=== PATIENT | male | born 1975 | race Caucasian/White ===

== ENCOUNTER 2024-04-19 01:36 | Emergency (ER) | payer BC, SELFPAY ==
--- NOTE | 2024-04-19 01:40 | ED.GENADULT ---
HPI - General Adult General Time Seen by Provider: 01:40 Date Seen: 04/19/24 Chief complaint: Back Injury/Pain Stated complaint: back pain radiating to right hand Time Seen by Provider: 04/19/24 01:39 Source: patient, RN notes reviewed and old records reviewed Mode of arrival: ambulatory Limitations: no limitations History of Present Illness HPI narrative: 48-year-old male who presents with back pain. Patient noted pain around the right scapula yesterday, gradually worsened during the course the day and now having some tingling into the ring finger and little finger of the right hand. No known injury but did do have a back work out 2 days ago. Took ibuprofen with minimal relief. No weakness. No chest pain or breathing difficulty, no other injuries. Related Data Home Medications ?Medication ?Instructions ?Recorded ?Confirmed No Known Home Medications 04/19/24 04/19/24 Allergies Allergy/AdvReac Type Severity Reaction Status Date / Time No Known Drug Allergies Allergy Verified 04/19/24 01:48 Exam Narrative: Exam Narrative: General: Well-developed and well-nourished, no acute distress Head: Atraumatic and normocephalic Eyes: Pupils are equal reactive, extraocular motions intact, conjunctiva clear ENT: External nose and ears are normal, posterior pharynx without erythema or exudate Neck: No midline cervical tenderness, full spontaneous range of motion the neck, trachea midline, no adenopathy Heart: Regular rate and rhythm no murmurs or thrills Lungs: Clear to auscultation bilaterally without wheezes or crackles Abdomen: Soft, nontender, nondistended with active bowel sounds Musculoskeletal: Tenderness along the right scapular border Neurologic: Awake, alert, and oriented x3, no gross focal neurologic deficits, cranial nerves intact as tested Psych: Mood and affect are appropriate Skin: No rashes Const: Vital Signs, click to edit/add: Vital Signs - 24 hr 04/19/24 01:46 Temperature 97.7 F Pulse Rate [Pulse Oximeter] 75 Respiratory Rate 16 Blood Pressure [Ri ght Upper Arm] 149/94 H Pulse Oximetry 95 Oxygen Delivery Me thod Room Air Course Course ED Course: Patient seen and examined, prior records reviewed. Patient presents today with right upper back pain and some numbness into the right hand. He notes that the numbness goes down the back of the arm and along the ulnar aspect of the right forearm into the ring finger and little finger. On exam, tenderness along the superior right scapular border, strength and sensation of the right arm intact. Patient will be started on prednisone burst and taper, muscle relaxant, and discussed symptom management for this. Follow-up with primary care next week to discuss physical therapy. Considered MRI of the cervical lumbar spine but no midline tenderness to percussion, no fevers to suggest spinal epidural abscess, and no weakness on exam Vital Signs Vital signs: Initial Vital Signs Temperature 97.7 F 04/19/24 01:46 Temperature Source Temporal Artery Scan 04/19/24 01:46 Pulse Rate 75 04/19/24 01:46 Respiratory Rate 16 04/19/24 01:46 Blood Pressure 149/94 H 04/19/24 01:46 Blood Pressure Mean 112 H 04/19/24 01:46 Blood Pressure Position Sitting 04/19/24 01:46 Pulse Oximetry 95 04/19/24 01:46 Oxygen Delivery Method Room Air 04/19/24 01:46 Vital Signs Temperature 97.7 F 04/19/24 01:46 Pulse Rate 75 04/19/24 01:46 Respiratory Rate 16 04/19/24 01:46 Blood Pressure 149/94 H 04/19/24 01:46 Pulse Oximetry 95 04/19/24 01:46 Oxygen Delivery Method Room Air 04/19/24 01:46 Temperature 97.7 F 04/19/24 01:46 Pulse Rate 75 04/19/24 01:46 Respiratory Rate 16 04/19/24 01:46 Blood Pressure 149/94 H 04/19/24 01:46 Pulse Oximetry 95 04/19/24 01:46 Oxygen Delivery Method Room Air 04/19/24 01:46 Discharge Plan Discharge Clinical Impression: Strain of thoracic back region, Radicular pain in right arm Patient Disposition: Home, Self-Care Condition: Stable Instructions: Paresthesia (ED), Thoracic Back Strain (ED) Additional Instructions: Take Tylenol and ibuprofen as needed for pain Take prednisone as prescribed Use [place] as needed for more severe pain induced Flexeril for muscle spasm Activity Level: Activity as Tolerated Discharge Diet: Regular Prescriptions: No Action No Known Home Medications Stand Alone Forms: MyHealth Info Instructions
[2024-04-19 01:46] VITALS: BP 149/94; PULSE 75; RESP 16; TEMP 36.5; O2SAT 95; BMI 31.2
--- OUTSIDE RECORDS SUMMARY | 2024-04-19 02:06 | XMS_ITS | Continuity of Care Document ---
Author Name [facility] Organization [facility] Care Team Providers Care Assistant Sales Director Name Role Phone [facility] Unavailable Unavailable Problems Combined list of problems from Department of [facility] and [facility] facilities. It does not include entries that were removed or entered in error. Problem Status Onset Date Problem Type Date of Resolution Comments Source pain in leg lower Inactive 02/08/2010 Condition [facility] Backache (ICD-9-CM 724.5) Active Condition [facility] Pain in joint involving shoulder region (ICD-9-CM 719.41) Active Condition [facility] Allergies, Adverse Reactions, Alerts Combined list of allergies from Department of [facility] and [facility] facilities. It does not include entries that were removed or entered in error. Substance Category Reaction Severity Reaction type Status Date Reported Comments Source CAT/FELINE PRODUCTS {Cla } Propensity to adverse reactions to substance Unknown Active 9 [facility] MOLD EXTRACTS (MOLD EXTRACTS) Propensity to adverse reactions to substance Unknown Active 9 Ambulatory Pharmacy Immunizations Combined list of available immunizations from the Department of [facility] and [facility] facilities. Immunization Series Date Given Administered By Site Reaction Lot Number CVX Code Drug Lei Seller Status Comments Source influenza, injectable, quadrivalent- pf 2020 [id number] 150 GlaxoSmithKli ne complet ed influenza , injectabl e, quadrival ent-pf 05/31/21 Given Ambulat ory Pharmac y Influenza, injectable, quadrivalent, preservative free 1 2020 [id number] 150 SmithKline (SKB) complet ed Influenza , injectabl e, quadrival ent, preservat brittany free [facility] COVID Vaccine Moderna 2020 [id number] complet ed COVID Vaccine Moderna 08/13/20 Given Ambulat ory Pharmac y SARS-COV-2 (COVID-19) vaccine, mRNA, spike protein, LNP, preservative free, 100 mcg or 50 mcg dose 2 2020 [id number] 207 Moderna Tachyus[employer] Inc. (MOD) complet ed SARS-COV- 2 (COVID-19 ) vaccine, mRNA, spike protein, LNP, preservat brittany free, 100 mcg or 50 mcg dose DoD COVID Vaccine Moderna 2020 [id number] 207 complet ed COVID Vaccine Moderna 07/17/20 Given Ambulat ory Pharmac y SARS-COV-2 (COVID-19) vaccine, mRNA, spike protein, LNP, preservative free, 100 mcg or 50 mcg dose 1 2020 [id number] 207 Moderna Tachyus, Inc. (MOD) complet ed SARS-COV- 2 (COVID-19 ) vaccine, mRNA, spike protein, LNP, preservat brittany free, 100 mcg or 50 mcg dose DoD influenza, injectable, quadrivalent 2019 [id number] 158 Seqirus complet ed influenza , injectabl e, quadrival ent 05/04/20 Given Ambulat ory Pharmac y influenza, injectable, quadrivalent, contains preservative 1 2019 [id number] 158 Seqirus (SEQ) complet ed influenza , injectabl e, quadrival ent, contains preservat brittany DoD influenza, injectable, quadrivalent- pf 2018 [id number] 150 Seqirus complet ed influenza , injectabl e, quadrival ent-pf 05/26/19 Given Ambulat ory Pharmac y Influenza, injectable, quadrivalent, preservative free 1 2018 [id number] 150 Seqirus (SEQ) complet ed Influenza , injectabl e, quadrival ent, preservat brittany free DoD influenza, injectable, quadrivalent- pf 2017 [id number] 150 Seqirus complet ed influenza , injectabl e, quadrival ent-pf 04/22/18 Given Ambulat ory Pharmac y Influenza, injectable, quadrivalent, preservative free 1 2017 [id number] 150 Seqirus (SEQ) comple t ed Influenza , injectabl e, quadrival ent, preservat brittany free DoD typhoid Vi capsular polysaccharid e vac 2017 [id number] 101 sanofi pasteur complet ed typhoid Vi capsular polysacch aride vac 02/26/18 Given Ambulat ory Pharmac y anthrax vaccine 2017 [id number] 24 Emergent Biosolutions complet ed anthrax vaccine 02/26/18 Given Ambulat ory Pharmac y anthrax vaccine 11 2017 [id number] 24 [employer] [place] ([facility]) complet ed anthrax vaccine DoD typhoid Vi capsular polysaccharid e vaccine 10 2017 [id number] 101 Sanofi Pasteur (PMC) complet ed typhoid Vi capsular polysacch aride vaccine DoD influenza, injectable, quadrivalent 2016 [id number] 158 GlaxoSmithKli ne complet ed influenza , injectabl e, quadrival ent 05/28/17 Given Ambulat ory Pharmac y influenza, injectable, quadrivalent, contains preservative 19 2016 [id number] 158 [facility] influenza , injectabl e, quadrival ent, contains preservat brittany DoD measles/mumps /rubella virus vaccine 2016 [id number] 03 Merck & Company Inc complet ed measles/m umps/rube lla virus vaccine 12/18/16 Given Ambulat ory Pharmac y anthrax vaccine 2016 [id number] 24 [employer] complet ed anthrax vaccine 12/18/16 Given Ambulat ory Pharmac y measles, mumps and rubella virus vaccine 2 2016 [id number] 03 Merck (MSD) complet ed measles, mumps and rubella virus vaccine DoD anthrax vaccine 10 2016 [id number] 24 [employer] [place] ([facility]) complet ed anthrax vaccine DoD tetanus-dipht h toxoids (Td) adult/adol 2016 [id number] 09 sanofi pasteur complet ed tetanus-d iphth toxoids (Td) adult/ado l 10/31/16 Given Ambulat ory Pharmac y measles/mumps /rubella virus vaccine 2016 [id number] 03 Merck & Company Inc complet ed measles/m umps/rube lla virus vaccine 10/31/16 Given Ambulat ory Pharmac y measles, mumps and rubella virus vaccine 1 2016 [id number] 03 Merck (MSD) complet ed measles, mumps and rubella virus vaccine DoD tetanus and diphtheria toxoids, adsorbed, preservative free, for adult use (2 Lf of tetanus toxoid and 2 Lf of diphtheria toxoid) 3 2016 [id number] 09 Sanofi Pasteur (PMC) complet ed tetanus and diphtheri a toxoids, adsorbed, preservat brittany free, for adult use (2 Lf of tetanus toxoid and 2 Lf of diphtheri a toxoid) DoD influenza, seasonal, injectable-pf 2015 [id number] 140 Seqirus complet ed influenza , seasonal, injectabl e-pf 05/29/16 Given Ambulat ory Pharmac y Influenza, seasonal, injectable, preservative free 1 2015 [id number] 140 Seqirus (SEQ) comple t ed Influenza , seasonal, injectabl e, preservat brittany free DoD typhoid Vi capsular polysaccharid e vac 2015 [id number] 101 sanofi pasteur complet ed typhoid Vi capsular polysacch aride vac 11/29/15 Given Ambulat ory Pharmac y anthrax vaccine 2015 [id number] 24 Emergent [employer] complet ed anthrax vaccine 11/29/15 Given Ambulat ory Pharmac y anthrax vaccine 9 2015 [id number] 24 [employer] [place] ([facility]) complet ed anthrax vaccine DoD typhoid Vi capsular polysaccharid e vaccine 9 2015 [id number] 101 Sanofi Pasteur (PMC) complet ed typhoid Vi capsular polysacch aride vaccine DoD meningococcal A,C,Y,W-135 (MCV4P) 2014 [id number] 114 sanofi pasteur complet ed meningoco ccal A,C,Y,W-1 35 (MCV4P) 06/21/15 Given Ambulat ory Pharmac y meningococcal polysaccharid e (groups A, C, Y and W-135) diphtheria toxoid conjugate vaccine (MCV4P) 3 2014 [id number] 114 Sanofi Pasteur (PMC) complet ed meningoco ccal polysacch aride (groups A, C, Y and W-135) diphtheri a toxoid conjugate vaccine (MCV4P) DoD influenza, seasonal, injectable-pf 2014 [id number] 140 CSL [employer] complet ed influenza , seasonal, injectabl e-pf 05/03/15 Given Ambulat ory Pharmac y Influenza, seasonal, injectable, preservative free 17 2014 [id number] 140 [employer] (CSL) complet ed Influenza , seasonal, injectabl e, preservat brittany free DoD anthrax vaccine 2014 [id number] 24 Emergent Bios[employer] complet ed anthrax vaccine 11/23/14 Given Ambulat ory Pharmac y anthrax vaccine 8 2014 [id number] 24 [facility] complet ed anthrax vaccine DoD influenza, seasonal, injectable-pf 2013 [id number] 140 Novartis Pharmaceutica ls complet ed influenza , seasonal, injectabl e-pf 05/25/14 Given Ambulat ory Pharmac y Influenza, seasonal, injectable, preservative free 16 2013 [id number] 140 Novartis Pharmaceutica l Olivia. (NOV) complet ed Influenza , seasonal, injectabl e, preservat brittany free DoD typhoid Vi capsular polysaccharid e vac 2013 [id number] 101 sanofi pasteur complet ed typhoid Vi capsular polysacch aride vac 11/24/13 Given Ambulat ory Pharmac y typhoid Vi capsular polysaccharid e vaccine 8 2013 [id number] 101 Sanofi Pasteur ([facility]) complet ed typhoid Vi capsular polysacch aride vaccine DoD anthrax vaccine 2013 [id number] 24 Emergent [employer] complet ed anthrax vaccine 10/21/13 Given Ambulat ory Pharmac y hepatitis A adult vaccine 2013 [id number] 52 GlaxoSmithKli ne complet ed hepatitis A adult vaccine 10/21/13 Given Ambulat ory Pharmac y anthrax vaccine 7 2013 [id number] 24 [facility] complet ed anthrax vaccine DoD hepatitis A vaccine, adult dosage 2 2013 [id number] [facility] hepatitis A vaccine, adult dosage DoD Influenza, injectable, MDCK-pf 2012 [id number] 153 Novartis Pharmaceutica ls complet ed Influenza , injectabl e, MDCK-pf 05/26/13 Given Ambulat ory Pharmac y Influenza, injectable, Madin Katie Canine Kidney, preservative free 1 2012 [id number] 153 Novartis Pharmaceutica l Olivia. (NOV) complet ed Influenza , injectabl e, Madin Katie Canine Kidney, preservat brittany free DoD vaccinia (smallpox) vaccine 0 2012 75 () Not Given vaccinia (smallpox ) vaccine DoD influenza, seasonal, injectable-pf 2011 [id number] 140 [employer] complet ed influenza , seasonal, injectabl e-pf 04/23/12 Given Ambulat ory Pharmac y Influenza, seasonal, injectable, preservative free 14 2011 [id number] 140 CS [employer] (CSL) complet ed Influenza , seasonal, injectabl e, preservat brittany free DoD typhoid Vi capsular polysaccharid e vac 2011 [id number] 101 sanofi pasteur complet ed typhoid Vi capsular polysacch aride vac 11/27/11 Given Ambulat ory Pharmac y typhoid Vi capsular polysaccharid e vaccine 1 2011 [id number] 101 Sanofi Pasteur (PMC) complet ed typhoid Vi capsular polysacch aride vaccine DoD influenza, seasonal, injectable 2010 [id number] 141 [employer] complet ed influenza , seasonal, injectabl e 03/28/11 Given Ambulat ory Pharmac y Influenza, seasonal, injectable 1 2010 [id number] 141 [employer]. (CSL) complet ed Influenza , seasonal, injectabl e DoD yellow fever vaccine 2010 [id number] 37 sanofi pasteur complet ed yellow fever vaccine 07/16/10 Given Ambulat ory Pharmac y yellow fever vaccine 1 2010 [id number] 37 Sanofi Pasteur (PMC) complet ed yellow fever vaccine [facility] INFLUENZA, LIVE, INTRANASAL [address] [place] meningococcal A,C,Y,W-135 (MCV4P) 2009 [id number] 114 sanofi pasteur complet ed meningoco ccal A,C,Y,W-1 35 (MCV4P) 05/30/10 Given Ambulat ory Pharmac y influenza virus vaccine,split 2009 [id number] 15 sanofi pasteur complet ed influenza virus vaccine,s plit 05/30/10 Given Ambulat ory Pharmac y influenza virus vaccine, split virus (incl. purified surface antigen)-reti red CODE 1 2009 [id number] 15 Sanofi Pasteur (PMC) complet ed influenza virus vaccine, split virus (incl. purified surface antigen)- retired CODE DoD meningococcal polysaccharid e (groups A, C, Y and W-135) diphtheria toxoid conjugate vaccine (MCV4P) 1 2009 [id number] 114 Sanofi Pasteur ([facility]) complet ed meningoco ccal polysacch aride (groups A, C, Y and W-135) diphtheri a toxoid conjugate vaccine (MCV4P) DoD typhoid Vi capsular polysaccharid e vac 2009 [id number] 101 sanofi pasteur complet ed typhoid Vi capsular polysacch aride vac 11/24/09 Given Ambulat ory Pharmac y typhoid Vi capsular polysaccharid e vaccine 1 2009 [id number] 101 Sanofi Pasteur ([facility]) complet ed typhoid Vi capsular polysacch aride vaccine DoD anthrax vaccine 2009 [id number] 24 [employer] complet ed anthrax vaccine 10/25/09 Given Ambulat ory Pharmac y anthrax vaccine 6 2009 [id number] 24 [employer] [place] (MIP) complet ed anthrax vaccine DoD Novel influenza-H1N 1-09, injectable 2009 [id number] 1 127 Novartis Pharmaceutica ls complet ed Novel influenza -V2F5-28, injectabl e 08/02/09 Given Ambulat ory Pharmac y Novel influenza-H1N 1-09, injectable 1 2009 [id number] 1 127 Novartis Pharmaceutica l Olivia. (NOV) complet ed Novel influenza -E5V3-05, injectabl e DoD influenza virus vaccine, live 2008 [id number] 111 [employer] comple t ed influenza virus vaccine, live 04/20/09 Given Ambulat ory Pharmac y influenza virus vaccine, live, attenuated, for intranasal use 1 2008 [id number] 111 [employer]. (MED) complet ed influenza virus vaccine, live, attenuate d, for intranasa l use DoD typhoid Vi capsular polysaccharid e vac 2007 [id number] 101 sanofi pasteur complet ed typhoid Vi capsular polysacch aride vac 11/25/07 Given Ambulat ory Pharmac y typhoid Vi capsular polysaccharid e vaccine 1 2007 [id number] 101 Sanofi Pasteur ([facility]) complet ed typhoid Vi capsular polysacch aride vaccine DoD influenza virus vaccine, live 2006 [id number] 111 [employer] comple t ed influenza virus vaccine, live 06/24/07 Given Ambulat ory Pharmac y influenza virus vaccine, live, attenuated, for intranasal use 1 2006 [id number] 111 [employer], [employer] (MED) complet ed influenza virus vaccine, live, attenuate d, for intranasa l use DoD anthrax vaccine 2006 [id number] 24 [employer] complet ed anthrax vaccine 10/29/06 Given Ambulat ory Pharmac y anthrax vaccine 6 2006 [id number] 24 [employer] [place] (MIP) complet ed anthrax vaccine DoD measles, mumps and rubella virus vaccine 0 2006 03 () Not Given measles, mumps and rubella virus vaccine DoD varicella virus vaccine 0 2006 21 () Not Given varicella virus vaccine DoD tetanus, diphtheria, acellular pertu is 2006 [id number] 115 sanofi pasteur complet ed tetanus, diphtheri a, acellular pertussis 09/10/06 Given Ambulat ory Pharmac y tetanus toxoid, reduced diphtheria toxoid, and acellular pertu is vaccine, adsorbed 1 2006 [id number] 115 Sanofi Pasteur ([facility]) complet ed tetanus toxoid, reduced diphtheri a toxoid, and acellular pertussis vaccine, adsorbed DoD influenza virus vaccine,split 2005 [id number] 15 sanofi pasteur complet ed influenza virus vaccine,s plit 06/19/06 Given Ambulat ory Pharmac y influenza virus vaccine, split virus (incl. purified surface antigen)-reti red CODE 1 2005 [id number] 15 Sanofi Pasteur (PMC) complet ed influenza virus vaccine, split virus (incl. purified surface antigen)- retired CODE DoD typhoid vaccine, parenteral 2005 [id number] 41 sanofi pasteur complet ed typhoid vaccine, parentera l 11/27/05 Given Ambulat ory Pharmac y typhoid vaccine, parenteral, other than acetone-kille d, dried 1 2005 [id number] 41 Sanofi Pasteur (PMC) complet ed typhoid vaccine, parentera l, other than acetone-k illed, dried DoD influenza virus vaccine,split 2004 [id number] 15 sanofi pasteur complet ed influenza virus vaccine,s plit 05/30/05 Given Ambulat ory Pharmac y influenza virus vaccine, split virus (incl. purified surface antigen)-reti red CODE 1 2004 [id number] 15 Sanofi Pasteur ([facility]) complet ed influenza virus vaccine, split virus (incl. purified surface antigen)- retired CODE DoD typhoid vaccine, parenteral 2003 [id number] 41 sanofi pasteur complet ed typhoid vaccine, parentera l 02/29/04 Given Ambulat ory Pharmac y typhoid vaccine, parenteral, other than acetone-kille d, dried 0 2003 [id number] 41 Sanofi Pasteur ([facility]) complet ed typhoid vaccine, parentera l, other than acetone-k illed, dried DoD anthrax vaccine 2003 [id number] 24 [employer] complet ed anthrax vaccine 10/26/03 Given Ambulat ory Pharmac y anthrax vaccine 5 2003 [id number] 24 [employer] [place] ([facility]) complet ed anthrax vaccine DoD influenza virus vaccine, whole virus 2002 [id number] 16 sanofi pasteur complet ed influenza virus vaccine, whole virus 04/11/03 Given Ambulat ory Pharmac y tuberculin purified protein derivative 2002 [id number] 96 sanofi pasteur complet ed tuberculi n purified protein derivativ e 04/11/03 Given Ambulat ory Pharmac y anthrax vaccine 2002 [id number] 24 [employer] complet ed anthrax vaccine 04/11/03 Given Ambulat ory Pharmac y influenza virus vaccine, whole virus 0 2002 [id number] 16 Sanofi Pasteur ([facility]) complet ed influenza virus vaccine, whole virus DoD anthrax vaccine 4 2002 [id number] 24 [employer] [place] ([facility]) complet ed anthrax vaccine DoD anthrax vaccine 2002 [id number] 24 [employer] complet ed anthrax vaccine 10/20/02 Given Ambulat ory Pharmac y anthrax vaccine 3 2002 [id number] 24 [facility] [place] ([facility]) complet ed anthrax vaccine DoD vaccinia (smallpox) vaccine 2002 [id number] 75 [employer] complet ed vaccinia (smallpox ) vaccine 08/31/02 Given Ambulat ory Pharmac y anthrax vaccine 2002 [id number] 24 [employer] complet ed anthrax vaccine 08/31/02 Given Ambulat ory Pharmac y anthrax vaccine 2 2002 [id number] 24 [employer] [place] ([facility]) complet ed anthrax vaccine DoD vaccinia (smallpox) vaccine 0 2002 [id number] 75 [facility] ([facility]) complet ed vaccinia (smallpox ) vaccine DoD tuberculin purified protein derivative 2001 [id number] 96 sanofi pasteur complet ed tuberculi n purified protein derivativ e 05/15/02 Given Ambulat ory Pharmac y influenza virus vaccine, whole virus 2001 [id number] 16 [facility] complet ed influenza virus vaccine, whole virus 05/15/02 Given Ambulat ory Pharmac y influenza virus vaccine, whole virus 0 2001 [id number] [facility] complet ed influenza virus vaccine, whole virus DoD typhoid Vi capsular polysaccharid e vac 2001 [id number] 101 sanofi pasteur complet ed typhoid Vi capsular polysacch aride vac 10/28/01 Given Ambulat ory Pharmac y typhoid Vi capsular polysaccharid e vaccine 0 2001 [id number] 101 Sanofi Pasteur (PMC) complet ed typhoid Vi capsular polysacch aride vaccine DoD influenza virus vaccine, whole virus 2000 [id number] 16 sanofi pasteur complet ed influenza virus vaccine, whole virus 05/27/01 Given Ambulat ory Pharmac y influenza virus vaccine, whole virus 0 2000 [id number] 16 Sanofi Pasteur (PMC) complet ed influenza virus vaccine, whole virus DoD tuberculin purified protein derivative 2000 [id number] 96 [facility] complet ed tuberculi n purified protein derivativ e 03/18/01 Given Ambulat ory Pharmac y influenza virus vaccine, whole virus 2000 [id number] 16 [facility] complet ed influenza virus vaccine, whole virus 07/31/00 Given Ambulat ory Pharmac y influenza virus vaccine, whole virus 0 2000 [id number] 16 [facility] ([facility]) comple t ed influenza virus vaccine, whole virus DoD anthrax vaccine 1999 [id number] 24 [employer] complet ed anthrax vaccine 01/20/00 Given Ambulat ory Pharmac y anthrax vaccine 3 1999 [id number] 24 [employer] [facility] ([facility]) complet ed anthrax vaccine DoD tuberculin purified protein derivative 1999 [id number] 96 [facility] complet ed tuberculi n purified protein derivativ e 10/24/99 Given Ambulat ory Pharmac y hepatitis A adult vaccine 1999 [id number] 52 Merck & Company Inc complet ed hepatitis A adult vaccine 10/24/99 Given Ambulat ory Pharmac y hepatitis A vaccine, adult dosage 2 1999 [id number] 52 Merck (MSD) complet ed hepatitis A vaccine, adult dosage DoD meningococcal polysaccharid e (MPSV4) 1999 [id number] 32 sanofi pasteur complet ed meningoco ccal polysacch aride (MPSV4) 09/26/99 Given Ambulat ory Pharmac y meningococcal polysaccharid e vaccine (MPSV4) 0 1999 [id number] 32 Sanofi Pasteur (PMC) complet ed meningoco ccal polysacch aride vaccine (MPSV4) DoD hepatitis A adult vaccine 1998 [id number] 52 Merck & Company Inc complet ed hepatitis A adult vaccine 05/30/99 Given Ambulat ory Pharmac y hepatitis A vaccine, adult dosage 1 1998 [id number] Merck (MSD) complet ed hepatitis A vaccine, adult dosage DoD influenza virus vaccine, whole virus [id number] [facility] complet ed influenza virus vaccine, whole virus 04/25/99 Given Ambulat ory Pharmac y influenza virus vaccine, whole virus 0 19986464 [id number] 16 [facility] (CON) complet ed influenza virus vaccine, whole virus DoD influenza virus vaccine, whole virus 19973054 [id number] 16 [facility] complet ed influenza virus vaccine, whole virus 04/24/98 Given Ambulat ory Pharmac y influenza virus vaccine, whole virus 0 19971917 [id number] 16 [facility] (CON) complet ed influenza virus vaccine, whole virus DoD influenza virus vaccine, whole virus 1996 16 [facility] complet ed influenza virus vaccine, whole virus 04/30/97 Given Ambulat ory Pharmac y influenza virus vaccine, whole virus 0 1996 16 [facility] (CON) complet ed influenza virus vaccine, whole virus DoD typhoid vaccine, live, oral 1996 25 [facility] complet ed typhoid vaccine, live, oral 01/08/97 Given Ambulat ory Pharmac y yellow fever vaccine 1996 [id number] [facility] complet ed yellow fever vaccine 01/08/97 Given Ambulat ory Pharmac y typhoid vaccine, live, oral 0 1996 25 [facility], live, oral DoD yellow fever vaccine 0 1996 [id number] 37 [facility] complet ed yellow fever vaccine DoD hepatitis B adult vaccine 1996 [id number] 43 [facility] complet ed hepatitis B adult vaccine 12/09/96 Given Ambulat ory Pharmac y hepatitis B vaccine, adult dosage 3 1996 [id number] 43 [facility] ed hepatitis B vaccine, adult dosage DoD hepatitis B adult vaccine 1996 43 Unknown complet ed hepatitis B adult vaccine 09/06/96 Given Ambulat ory Pharmac y hepatitis B vaccine, adult dosage 2 1996 43 Unknown (UNK) comple t ed hepatitis B vaccine, adult dosage DoD hepatitis B adult vaccine 1995 43 Unknown complet ed hepatitis B adult vaccine 05/28/96 Given Ambulat ory Pharmac y hepatitis B vaccine, adult dosage 1 1995 43 Unknown (UNK) comple t ed hepatitis B vaccine, adult dosage DoD poliovirus vaccine, live, oral 1995 02 complet ed polioviru s vaccine, live, oral 05/11/96 Given Ambulat ory Pharmac y measles virus vaccine 1995 05 complet ed measles virus vaccine 05/11/96 Given Ambulat ory Pharmac y trivalent poliovirus vaccine, live, oral 0 1995 02 () complet ed trivalent polioviru s vaccine, live, oral DoD measles virus vaccine 0 1995 05 () complet ed measles virus vaccine DoD tetanus-dipht h toxoids (Td) adult/adol 1995 09 complet ed tetanus-d iphth toxoids (Td) adult/ado l 04/05/96 Given Ambulat ory Pharmac y tetanus and diphtheria toxoids, adsorbed, preservative free, for adult use (2 Lf of tetanus toxoid and 2 Lf of diphtheria toxoid) 0 1995 09 () complet ed tetanus and diphtheri a toxoids, adsorbed, preservat brittany free, for adult use (2 Lf of tetanus toxoid and 2 Lf of diphtheri a toxoid) DoD Results Combined list of recent chemistry, hematology and other laboratory results from [facility] [employer] [facility], ranging from 15 months to all on record, depending upon the facility. Order Name Results Value Reference Range Date Interpretation Specimen Comments Source Infectio us Disease HIV-1/O/2 Non-Reac tive 1 (10/14/23 4:08 PM) 10/13 N Interpretiv e Data: INTERPRETAT ION: This method is a screening procedure for the detection of HIV p24 Antigen and Antibodies to HIV-1, including Group O, and/or HIV-2. NON-REACTIV E: HIV-1 antigen and HIV-1 / HIV-2 antibodies were not detected. No laboratory evidence of HIV infection. A negative test result does not exclude the possibility of exposure to or infection with HIV. HIV antibodies and/or p24 antigen may be undetectabl e in some stages of the infection and in some clinical conditions. If acute HIV infection is suspected, consider submitting another specimen to a reference laboratory for HIV-1 RNA. SCREEN REACTIVE - CONFIRMATIO N TO FOLLOW: Possible presence of HIV-1antibo dies, HIV-2 antibodies and/or HIV-1 p24 antigen. Specimen will reflex to the confirmatio n testing that fulfills the Center for Disease Control and Prevention' s HIV diagnostic algorithm. Refer to [facility] Lab Guide for additional information : [email or web address]/ [email or web address] x Testing performed by [facility]ar. [facility] Clifford yoon Sendouts Repository Sample Received (10/14/23 4:08 PM) 10/13 N [facility] Vital Signs Combined list of inpatient and outpatient Vital Signs from Department of [employer] and [facility] Affairs, ranging from 12 months to all on record, depending upon the facility. Vital Sign Value Date Comments Source No data available for this section Ambulatory Pharmacy Encounters Combined list of: 1) Encounters from Department of Veterans Affairs facilities going back up to thelast 18 months. 2) Encounters from the Department of Defense facilities going back up to 280 months. Location Location Details Encounter Type Encounter Number Reason For Visit Attending Provider ADM Date DC Date Status Disposition Source Theater Facility OUTPATIENT [id number] 02/08 Released w/o Limitations [facility] [place] [facility] [place] [address](AFN G [address]) OUTPATIENT [id number] Notes Entered by: DANIELLA PULLIAM 13 Oct 2017 1511 ------- ------- ------- ------- -- Triserv ice SUGEY TOWNSEND 10/13 [facility] [place] [place] [address](A FNG [address]) [place] [address](AFN G [address]) OUTPATIENT [id number] Notes Entered by: IRWIN STARR 04 Oct 2018 1456 ------- ------- ------- ------- -- Tri-Ser vice SHANNAN FERREIRA 10/04 [facility] w/[facility] Limitations [facility] [place] [address](A FNG [address]) [place] [address](AFN G [address]) OUTPATIENT [id number] Notes Entered by: Teresa WANG 12 Oct 2019 1102 ------- ------- ------- ------- -- Tri-Ser KAY Baker 10/11 Released w/o Limitations [facility] [place] [address](A FNG [address]) [place] [address](AFN G [address]) OUTPATIENT [id number] Notes Entered by: Teresa WANG 06 Oct 2021 1249 ------- ------- ------- ------- -- Tri Service DARREN CANALES 10/06 Released w/o Limitations [facility] [place] [address](A FNG [address]) [id number] [facility] Dental [id number] WILBER HIRSCH 10/13 Discharge Disposition: Home or Self Care [id number] MDG [id number] [facility] Outpatient [id number] BARRON COPELANDPERRI 10/13 Discharge Disposition: Home or Self Care [id number] MDG Procedures Combined list of: 1) Procedures from Department of Veterans Affairs facilities going back up to thelast 18 months, not all [place] non-surgical procedures are included; 2) 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 Procedure Procedure Type Code Date Perfomer Comments Sourc e No data available for this section Ambulatory P harmacy Social History Combined list of available smoking, tobacco, and other social history from Department of Defense and Veterans Affairs facilities. Social History Type Response Date Comment Sourc e Tobacco smoking status NHIS LIFETIME NON-TOBACCO USER 08/25/2010 [facility] This section is an empty social history section. DoD Assessment and Plan Combined list of future care activities from Department of Defense and Veterans Affairs facilities (e.g., assessment and plan notes, appointments, orders, and referrals). Additional future care activities may be listed in the Plan of Care section. Result Assessment and Plan Date Source Assessment and Plan No data available for this section 04/19/2024 Ambulatory Pharmacy Functional Status Combined list of recent functional and cognitive assessments recorded at Department of Defense and [facility] ([place] Functional [place] Measurement (FIM) Scale: 1 = Total Assistance (Subject = 0% +), 2 = Maximal Assistance (Subject = 25% +), 3 = Moderate Assistance (Subject = 50% +), 4 = Minimal Assistance (Subject = 75% +), 5 = Supervision, 6 = Modified Deadwood (Device), 7 = Complete Deadwood (Timely, Safely). Assessment Date/Time Source Assessment Type Assessment Skill Assessment Score Assessment Details No data available for this section
== END 2024-04-19 02:14 | disposition home or self-care (01) ==
LOC: ED 02:04
PROVIDERS: Emergency Provider Family Medicine
DX: M54.14 Radiculopathy, thoracic region (principal)
CPT/HCPCS: 99283; 99284

== ENCOUNTER 2024-05-10 06:54 | Outpatient (CLI) | payer BC, SELFPAY ==
--- NOTE | 2024-05-10 07:15 | CRLHL7_ITS ---
For Patients: As a result of the Century Cures Act, medical imaging exams and procedure reports are released immediately into your electronic medical record. You may view this report before your referring provider. If you have questions, please contact your health care provider. INDICATION: Cervical stenosis. TECHNIQUE: Sagittal T1 sagittal and axial T2 and sagittal STIR images. Findings : Straightening of the usual cervical curve. The lower brainstem cervical upper thoracic spinal cord appear intrinsically normal. No stenosis of the foramen magnum level C1 or C2 levels. At C2-3 no disc herniation central or lateral stenosis. At C3-4 no disc herniation central or lateral stenosis. At C4-5 there is mild circumferential disc bulging and shallow left paracentral protrusion there is slight deformity of the thecal sac without spinal cord impingement. Mild left foraminal narrowing. At C5-6 mild diffuse disc bulging and uncinate process hypertrophy. No stenosis of the spinal canal. Mild bilateral foraminal narrowing. At C6-7 shallow broad posterior disc protrusion osteophyte cause mild thecal sac deformity without spinal cord impingement. Mild bilateral foraminal narrowing. At C7-T1 shallow right posterolateral protrusion and uncinate process spur results and mild to moderate right foraminal narrowing. (Images 34 and 5 of series #2. Axial images 29 and 30 of series #5). Potential irritation of the exiting right C8 nerve root. IMPRESSION: 1. Multilevel cervical disc degeneration between C4 and T1. 2. At C7-T1 shallow right posterolateral disc osteophyte complex, asymmetric foraminal narrowing and potential impingement of right C8 nerve root. 3. At C6-7 mild bilateral foraminal narrowing. 4. At C5-6 mild bilateral foraminal narrowing. 5. At C4-5 small left paracentral protrusion with mild left foraminal narrowing. Dictated by Philip Strauss MD @ 05/10/2024 11:29:53 AM (Electronically Signed)
== END 2024-05-10 06:55 | disposition home or self-care (01) ==
LOC: MRI 06:54
PROVIDERS: Visit Provider Orthopaedic Surgery Orthopaedic Surgery of the Spine
DX: M48.02 Spinal stenosis, cervical region (principal); M51.360 Other intervertebral disc degeneration, lumbar region with discogenic back pain only; M50.221 Other cervical disc displacement at C4-C5 level; M50.222 Other cervical disc displacement at C5-C6 level; M50.223 Other cervical disc displacement at C6-C7 level
CPT/HCPCS: 72141

== ENCOUNTER 2024-12-13 19:28 | Emergency (ER) | payer BC, SELFPAY ==
--- OUTSIDE RECORDS SUMMARY | 2024-12-13 19:29 | XMS_ITS | Continuity of Care Document ---
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 and [facility] facilities. It does not include entries that were removed or entered in error. Problem Status Onset Date Problem Type Date of Resolution Comments Source pain in the leg (below the knee) Inactive 02/08/2010 Condition [facility] Backache (ICD-9-CM 724.5) Active Condition [facility] Pain in joint involving shoulder region (ICD-9-CM 719.41) Active Condition [facility] Allergies, Adverse Reactions, Alerts Combined list of allergies from Department [facility] and [facility] facilities. It does not include entries that were removed or entered in error. Substance Category Reaction Severity Reaction type Status Date Reported Comments Source CAT/FELINE PRODUCTS {Cla } Propensity to adverse reactions to substance Unknown Active 9 Unknown Organization MOLD EXTRACTS (MOLD EXTRACTS) Propensity to adverse reactions to substance Unknown Active 9 Unknown Organization Immunizations Combined list of available immunizations from the [facility] and [facility] facilities. 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 Status Comments Source influenza, injectable, quadrivalent- pf 2020 [id number] 150 GlaxoSmithKli ne complet ed influenza , injectabl e, quadrival ent-pf 05/31/21 Given Ambulat ory Pharmac y Influenza, injectable, quadrivalent, preservative free 1 2020 [id number] 150 SmithKline (SKB) complet ed Influenza , injectabl e, quadrival ent, preservat brittany free [facility] COVID Vaccine Moderna 2020 [id number] complet ed COVID Vaccine Moderna 08/13/20 Given Ambulat ory Pharmac y SARS-COV-2 (COVID-19) vaccine, mRNA, spike protein, LNP, preservative free, 100 mcg or 50 mcg dose 2 2020 [id number] 207 Moderna US, Inc. (MOD) complet ed SARS-COV- 2 (COVID-19 ) vaccine, mRNA, spike protein, LNP, preservat brittany free, 100 mcg or 50 mcg dose DoD COVID Vaccine Moderna 2020 [id number] 207 complet ed COVID Vaccine Moderna 07/17/20 Given Ambulat ory Pharmac y SARS-COV-2 (COVID-19) vaccine, mRNA, spike protein, LNP, preservative free, 100 mcg or 50 mcg dose 1 2020 [id number] 207 Moderna yWorld, Inc. (MOD) complet ed SARS-COV- 2 (COVID-19 ) vaccine, mRNA, spike protein, LNP, preservat brittany free, 100 mcg or 50 mcg dose DoD influenza, injectable, quadrivalent 2019 [id number] 158 Seqirus complet ed influenza , injectabl e, quadrival ent 05/04/20 Given Ambulat ory Pharmac y influenza, injectable, quadrivalent, contains preservative 1 2019 [id number] 158 Seqirus (SEQ) complet ed influenza , injectabl e, quadrival ent, contains preservat brittany DoD influenza, injectable, quadrivalent- pf 2018 [id number] 150 Seqirus complet ed influenza , injectabl e, quadrival ent-pf 05/26/19 Given Ambulat ory Pharmac y Influenza, injectable, quadrivalent, preservative free 1 2018 [id number] 346 150 Seqirus (SEQ) complet ed Influenza , injectabl e, quadrival ent, preservat brittany free DoD influenza, injectable, quadrivalent- pf 2017 [id number] 150 Seqirus complet ed influenza , injectabl e, quadrival ent-pf 04/22/18 Given Ambulat ory Pharmac y Influenza, injectable, quadrivalent, preservative free 1 2017 [id number] 150 Seqirus (SEQ) comple t ed Influenza , injectabl e, quadrival ent, preservat brittany free DoD typhoid Vi capsular polysaccharid e vac 2017 [id number] 101 sanofi pasteur complet ed typhoid Vi capsular polysacch aride vac 02/26/18 Given Ambulat ory Pharmac y anthrax vaccine 2017 [id number] 24 Emergent Biosolutions complet ed anthrax vaccine 02/26/18 Given Ambulat ory Pharmac y anthrax vaccine 11 2017 [id number] 24 [employer] [place] ([facility]) complet ed anthrax vaccine DoD typhoid Vi capsular polysaccharid e vaccine 10 2017 [id number] 101 Sanofi Pasteur (PMC) complet ed typhoid Vi capsular polysacch aride vaccine DoD influenza, injectable, quadrivalent 2016 [id number] 158 GlaxoSmSequent MedicalKli ne complet ed influenza , injectabl e, quadrival ent 05/28/17 Given Ambulat ory Pharmac y influenza, injectable, quadrivalent, contains preservative 19 2016 [id number] 158 [facility] (SKB) complet ed influenza , injectabl e, quadrival ent, contains preservat brittany DoD measles/mumps /rubella virus vaccine 2016 [id number] 03 Merck & Company Inc complet ed measles/m umps/rube lla virus vaccine 12/18/16 Given Ambulat ory Pharmac y anthrax vaccine 2016 [id number] 24 Emergent Biosolutions complet ed anthrax vaccine 12/18/16 Given Ambulat ory Pharmac y measles, mumps and rubella virus vaccine 2 2016 [id number] 03 Merck (MSD) complet ed measles, mumps and rubella virus vaccine DoD anthrax vaccine 10 2016 [id number] 24 [employer] [place] ([facility]) complet ed anthrax vaccine DoD tetanus-dipht h toxoids (Td) adult/adol 2016 [id number] 09 sanofi pasteur complet ed tetanus-d iphth toxoids (Td) adult/ado l 10/31/16 Given Ambulat ory Pharmac y measles/mumps /rubella virus vaccine 2016 [id number] 03 Merck & Company Inc complet ed measles/m umps/rube lla virus vaccine 10/31/16 Given Ambulat ory Pharmac y measles, mumps and rubella virus vaccine 1 2016 [id number] 03 Merck (MSD) complet ed measles, mumps and rubella virus vaccine DoD tetanus and diphtheria toxoids, adsorbed, preservative free, for adult use (2 Lf of tetanus toxoid and 2 Lf of diphtheria toxoid) 3 2016 [id number] 09 Sanofi Pasteur (PMC) complet ed tetanus and diphtheri a toxoids, adsorbed, preservat brittany free, for adult use (2 Lf of tetanus toxoid and 2 Lf of diphtheri a toxoid) DoD influenza, seasonal, injectable-pf 2015 [id number] 140 Seqirus complet ed influenza , seasonal, injectabl e-pf 05/29/16 Given Ambulat ory Pharmac y Influenza, seasonal, injectable, preservative free 1 2015 [id number] 140 Seqirus (SEQ) comple t ed Influenza , seasonal, injectabl e, preservat brittany free DoD typhoid Vi capsular polysaccharid e vac 2015 W5981-8 101 sanofi pasteur complet ed typhoid Vi capsular polysacch aride vac 11/29/15 Given Ambulat ory Pharmac y anthrax vaccine 2015 [id number] 24 Emergent Biosolutions complet ed anthrax vaccine 11/29/15 Given Ambulat ory Pharmac y anthrax vaccine 9 2015 [id number] 24 [employer] [place] ([facility]) complet ed anthrax vaccine DoD typhoid Vi capsular polysaccharid e vaccine 9 2015 G8457-0 101 Sanofi Pasteur (PMC) complet ed typhoid Vi capsular polysacch aride vaccine DoD meningococcal A,C,Y,W-135 (MCV4P) 2014 [id number] 114 sanofi pasteur complet ed meningoco ccal A,C,Y,W-1 35 (MCV4P) 06/21/15 Given Ambulat ory Pharmac y meningococcal polysaccharid e (groups A, C, Y and W-135) diphtheria toxoid conjugate vaccine (MCV4P) 3 2014 [id number] 114 Sanofi Pasteur (PMC) complet ed meningoco ccal polysacch aride (groups A, C, Y and W-135) diphtheri a toxoid conjugate vaccine (MCV4P) DoD influenza, seasonal, injectable-pf 2014 [id number] 140 CSL Behring complet ed influenza , seasonal, injectabl e-pf 05/03/15 Given Ambulat ory Pharmac y Influenza, seasonal, injectable, preservative free 17 2014 [id number] 140 CSL [employer]abac[employer], Inc. (CSL) complet ed Influenza , seasonal, injectabl e, preservat brittany free DoD anthrax vaccine 2014 [id number] 24 Emergent Biosolutions complet ed anthrax vaccine 11/23/14 Given Ambulat ory Pharmac y anthrax vaccine 8 2014 [id number] 24 [facility] complet ed anthrax vaccine DoD influenza, seasonal, injectable-pf 2013 [id number] 140 Novartis Pharmaceutica ls complet ed influenza , seasonal, injectabl e-pf 05/25/14 Given Ambulat ory Pharmac y Influenza, seasonal, injectable, preservative free 16 2013 [id number] 140 Novartis Pharmaceutica l [place]. (NOV) complet ed Influenza , seasonal, injectabl e, preservat brittany free DoD typhoid Vi capsular polysaccharid e vac 2013 W9755-7 101 sanofi pasteur complet ed typhoid Vi capsular polysacch aride vac 11/24/13 Given Ambulat ory Pharmac y typhoid Vi capsular polysaccharid e vaccine 8 2013 Z3209-0 101 Sanofi Pasteur ([facility]) complet ed typhoid Vi capsular polysacch aride vaccine DoD anthrax vaccine 2013 [id number] 24 Emergent Biosolutions complet ed anthrax vaccine 10/21/13 Given Ambulat ory Pharmac y hepatitis A adult vaccine 2013 [id number] 52 GlaxoSmithKli ne complet ed hepatitis A adult vaccine 10/21/13 Given Ambulat ory Pharmac y anthrax vaccine 7 2013 [id number] 24 [facility] complet ed anthrax vaccine DoD hepatitis A vaccine, adult dosage 2 2013 [id number] 52 [facility] (SKB) complet ed hepatitis A vaccine, adult dosage DoD Influenza, injectable, MDCK-pf 2012 [id number] 153 Novartis Pharmaceutica ls complet ed Influenza , injectabl e, MDCK-pf 05/26/13 Given Ambulat ory Pharmac y Influenza, injectable, Madin Katie Canine Kidney, preservative free 1 2012 [id number] 153 Novartis Pharmaceutica l [place]. (NOV) complet ed Influenza , injectabl e, Madin Katie Canine Kidney, preservat brittany free DoD vaccinia (smallpox) vaccine 0 2012 75 () Not Given vaccinia (smallpox ) vaccine DoD influenza, seasonal, injectable-pf 2011 [id number] 140 CSL Behring complet ed influenza , seasonal, injectabl e-pf 04/23/12 Given Ambulat ory Pharmac y Influenza, seasonal, injectable, preservative free 14 2011 [id number] 140 CS Biotherapies, Inc. (CSL) complet ed Influenza , seasonal, injectabl e, preservat brittany free DoD typhoid Vi capsular polysaccharid e vac 2011 [id number] 101 sanofi pasteur complet ed typhoid Vi capsular polysacch aride vac 11/27/11 Given Ambulat ory Pharmac y typhoid Vi capsular polysaccharid e vaccine 1 2011 [id number] 101 Sanofi Pasteur ([facility]) complet ed typhoid Vi capsular polysacch aride vaccine DoD influenza, seasonal, injectable 2010 [id number] 141 CSL Behring complet ed influenza , seasonal, injectabl e 03/28/11 Given Ambulat ory Pharmac y Influenza, seasonal, injectable 1 2010 [id number] 141 CS [employer]otherapies, Inc. (CSL) complet ed Influenza , seasonal, injectabl e DoD yellow fever vaccine 2010 [id number] 37 sanofi pasteur complet ed yellow fever vaccine 07/16/10 Given Ambulat ory Pharmac y yellow fever vaccine 1 2010 [id number] 37 Sanofi Pasteur (PMC) complet ed yellow fever vaccine [facility] INFLUENZA, LIVE, INTRANASAL 2009 111 complet ed [place] meningococcal A,C,Y,W-135 (MCV4P) 2009 [id number] 114 sanofi pasteur complet ed meningoco ccal A,C,Y,W-1 35 (MCV4P) 05/30/10 Given Ambulat ory Pharmac y influenza virus vaccine,split 2009 [id number] 15 sanofi pasteur complet ed influenza virus vaccine,s plit 05/30/10 Given Ambulat ory Pharmac y influenza virus vaccine, split virus (incl. purified surface antigen)-reti red CODE 1 2009 [id number] 15 Sanofi Pasteur (PMC) complet ed influenza virus vaccine, split virus (incl. purified surface antigen)- retired CODE DoD meningococcal polysaccharid e (groups A, C, Y and W-135) diphtheria toxoid conjugate vaccine (MCV4P) 1 2009 [id number] 114 Sanofi Pasteur ([facility]) complet ed meningoco ccal polysacch aride (groups A, C, Y and W-135) diphtheri a toxoid conjugate vaccine (MCV4P) DoD typhoid Vi capsular polysaccharid e vac 2009 [id number] 101 sanofi pasteur complet ed typhoid Vi capsular polysacch aride vac 11/24/09 Given Ambulat ory Pharmac y typhoid Vi capsular polysaccharid e vaccine 1 2009 C5471-1 101 Sanofi Pasteur ([facility]) complet ed typhoid Vi capsular polysacch aride vaccine DoD anthrax vaccine 2009 [id number] 24 Emergent Biosolutions complet ed anthrax vaccine 10/25/09 Given Ambulat ory Pharmac y anthrax vaccine 6 2009 [id number] 24 [employer] [place] (MIP) complet ed anthrax vaccine DoD Novel influenza-H1N 1-09, injectable 2009 [id number] 1 127 Novartis Pharmaceutica ls complet ed Novel influenza -S6N3-04, injectabl e 08/02/09 Given Ambulat ory Pharmac y Novel influenza-H1N 1-09, injectable 1 2009 [id number] 1 127 Novartis Pharmaceutica l Olivia. (NOV) complet ed Novel influenza -O9Y6-49, injectabl e DoD influenza virus vaccine, live 2008 [id number] 111 Medimmune Inc comple t ed influenza virus vaccine, live 04/20/09 Given Ambulat ory Pharmac y influenza virus vaccine, live, attenuated, for intranasal use 1 2008 [id number] 111 MedImmune, Inc. (MED) complet ed influenza virus vaccine, live, attenuate d, for intranasa l use DoD typhoid Vi capsular polysaccharid e vac 2007 [id number] 101 sanofi pasteur complet ed typhoid Vi capsular polysacch aride vac 11/25/07 Given Ambulat ory Pharmac y typhoid Vi capsular polysaccharid e vaccine 1 2007 [id number] 101 Sanofi Pasteur (PMC) complet ed typhoid Vi capsular polysacch aride vaccine DoD influenza virus vaccine, live 2006 [id number] 111 Medimmune Inc comple t ed influenza virus vaccine, live 06/24/07 Given Ambulat ory Pharmac y influenza virus vaccine, live, attenuated, for intranasal use 1 2006 [id number] 111 Stil[employer], Kaixin[employer]. (MED) complet ed influenza virus vaccine, live, attenuate d, for intranasa l use DoD anthrax vaccine 2006 [id number] 24 Emergent Biosolutions complet ed anthrax vaccine 10/29/06 Given Ambulat ory Pharmac y anthrax vaccine 6 2006 [id number] 24 [facility] complet ed anthrax vaccine DoD measles, mumps and rubella virus vaccine 0 2006 03 () Not Given measles, mumps and rubella virus vaccine DoD varicella virus vaccine 0 2006 21 () Not Given varicella virus vaccine DoD tetanus, diphtheria, acellular pertu is 2006 [id number] 115 sanofi pasteur complet ed tetanus, diphtheri a, acellular pertussis 09/10/06 Given Ambulat ory Pharmac y tetanus toxoid, reduced diphtheria toxoid, and acellular pertu is vaccine, adsorbed 1 2006 [id number] 115 Sanofi Pasteur ([facility]) complet ed tetanus toxoid, reduced diphtheri a toxoid, and acellular pertussis vaccine, adsorbed DoD influenza virus vaccine,split 2005 [id number] 15 sanofi pasteur complet ed influenza virus vaccine,s plit 06/19/06 Given Ambulat ory Pharmac y influenza virus vaccine, split virus (incl. purified surface antigen)-reti red CODE 1 2005 [id number] 15 Sanofi Pasteur (PMC) complet ed influenza virus vaccine, split virus (incl. purified surface antigen)- retired CODE DoD typhoid vaccine, inactivated 2005 [id number] 101 sanofi pasteur complet ed typhoid vaccine, inactivat ed 11/27/05 Given Ambulat ory Pharmac y typhoid vaccine, parenteral, other than acetone-kille d, dried 1 2005 [id number] 41 Sanofi Pasteur (PMC) complet ed typhoid vaccine, parentera l, other than acetone-k illed, dried DoD influenza virus vaccine,split 2004 [id number] 15 sanofi pasteur complet ed influenza virus vaccine,s plit 05/30/05 Given Ambulat ory Pharmac y influenza virus vaccine, split virus (incl. purified surface antigen)-reti red CODE 1 2004 [id number] 15 Sanofi Pasteur ([facility]) complet ed influenza virus vaccine, split virus (incl. purified surface antigen)- retired CODE DoD typhoid vaccine, inactivated 2003 [id number] 101 sanofi pasteur complet ed typhoid vaccine, inactivat ed 02/29/04 Given Ambulat ory Pharmac y typhoid vaccine, parenteral, other than acetone-kille d, dried 0 2003 [id number] 41 Sanofi Pasteur ([facility]) complet ed typhoid vaccine, parentera l, other than acetone-k illed, dried DoD anthrax vaccine 2003 [id number] 24 Emergent [employer] complet ed anthrax vaccine 10/26/03 Given Ambulat ory Pharmac y anthrax vaccine 5 2003 [id number] 24 [facility] complet ed anthrax vaccine DoD influenza virus vaccine, whole virus 2002 [id number] 16 sanofi pasteur complet ed influenza virus vaccine, whole virus 04/11/03 Given Ambulat ory Pharmac y tuberculin purified protein derivative 2002 [id number] 96 sanofi pasteur complet ed tuberculi n purified protein derivativ e 04/11/03 Given Ambulat ory Pharmac y anthrax vaccine 2002 [id number] 24 [employer] complet ed anthrax vaccine 04/11/03 Given Ambulat ory Pharmac y influenza virus vaccine, whole virus 0 2002 [id number] 16 Sanofi Pasteur ([facility]) complet ed influenza virus vaccine, whole virus DoD anthrax vaccine 4 2002 [id number] 24 [facility] complet ed anthrax vaccine DoD anthrax vaccine 2002 [id number] 24 [employer] complet ed anthrax vaccine 10/20/02 Given Ambulat ory Pharmac y anthrax vaccine 3 2002 [id number] 24 [facility] complet ed anthrax vaccine DoD vaccinia (smallpox) vaccine 2002 [id number] 75 [employer] complet ed vaccinia (smallpox ) vaccine 08/31/02 Given Ambulat ory Pharmac y anthrax vaccine 2002 [id number] 24 [employer] complet ed anthrax vaccine 08/31/02 Given Ambulat ory Pharmac y anthrax vaccine 2 2002 [id number] 24 [employer] [place] ([facility]) complet ed anthrax vaccine DoD vaccinia (smallpox) vaccine 0 2002 [id number] [facility] vaccinia (smallpox ) vaccine DoD tuberculin purified protein derivative 2001 [id number] 96 sanofi pasteur complet ed tuberculi n purified protein derivativ e 05/15/02 Given Ambulat ory Pharmac y influenza virus vaccine, whole virus 2001 [id number] 16 [facility] complet ed influenza virus vaccine, whole virus 05/15/02 Given Ambulat ory Pharmac y influenza virus vaccine, whole virus 0 2001 [id number] 16 [employer] ([place]) complet ed influenza virus vaccine, whole virus DoD typhoid Vi capsular polysaccharid e vac 2001 [id number] 101 sanofi pasteur complet ed typhoid Vi capsular polysacch aride vac 10/28/01 Given Ambulat ory Pharmac y typhoid Vi capsular polysaccharid e vaccine 0 2001 [id number] 101 Sanofi Pasteur (PMC) complet ed typhoid Vi capsular polysacch aride vaccine DoD influenza virus vaccine, whole virus 2000 [id number] 16 sanofi pasteur complet ed influenza virus vaccine, whole virus 05/27/01 Given Ambulat ory Pharmac y influenza virus vaccine, whole virus 0 2000 [id number] 16 Sanofi Pasteur (PMC) complet ed influenza virus vaccine, whole virus DoD tuberculin purified protein derivative 2000 [id number] 96 [facility] complet ed tuberculi n purified protein derivativ e 03/18/01 Given Ambulat ory Pharmac y influenza virus vaccine, whole virus 2000 [id number] 16 [facility] complet ed influenza virus vaccine, whole virus 07/31/00 Given Ambulat ory Pharmac y influenza virus vaccine, whole virus 0 2000 [id number] 16 [facility] ([facility]) comple t ed influenza virus vaccine, whole virus DoD anthrax vaccine 1999 [id number] 24 [employer] complet ed anthrax vaccine 01/20/00 Given Ambulat ory Pharmac y anthrax vaccine 3 1999 [id number] 24 [facility] complet ed anthrax vaccine DoD tuberculin purified protein derivative 1999 [id number] 96 [facility] complet ed tuberculi n purified protein derivativ e 10/24/99 Given Ambulat ory Pharmac y hepatitis A adult vaccine 1999 [id number] 52 Merck & Company Inc complet ed hepatitis A adult vaccine 10/24/99 Given Ambulat ory Pharmac y hepatitis A vaccine, adult dosage 2 1999 [id number] 52 Merck (MSD) complet ed hepatitis A vaccine, adult dosage DoD meningococcal polysaccharid e (MPSV4) 1999 [id number] 32 sanofi pasteur complet ed meningoco ccal polysacch aride (MPSV4) 09/26/99 Given Ambulat ory Pharmac y meningococcal polysaccharid e vaccine (MPSV4) 0 1999 [id number] 32 Sanofi Pasteur (PMC) complet ed meningoco ccal polysacch aride vaccine (MPSV4) DoD hepatitis A adult vaccine 1998 [id number] 52 Merck & Company Inc complet ed hepatitis A adult vaccine 05/30/99 Given Ambulat ory Pharmac y hepatitis A vaccine, adult dosage 1 1998 [id number] 52 Merck (MSD) complet ed hepatitis A vaccine, adult dosage DoD influenza virus vaccine, whole virus [id number] 16 [facility] complet ed influenza virus vaccine, whole virus 04/25/99 Given Ambulat ory Pharmac y influenza virus vaccine, whole virus 0 [id number] 16 [facility] (CON) complet ed influenza virus vaccine, whole virus DoD influenza virus vaccine, whole virus [id number] 16 [facility] complet ed influenza virus vaccine, whole virus 04/24/98 Given Ambulat ory Pharmac y influenza virus vaccine, whole virus 0 [id number] 16 [facility] (CON) complet ed influenza virus vaccine, whole virus DoD influenza virus vaccine, whole virus 1996 16 [facility] complet ed influenza virus vaccine, whole virus 04/30/97 Given Ambulat ory Pharmac y influenza virus vaccine, whole virus 0 1996 16 [place] (CON) complet ed influenza virus vaccine, whole virus DoD typhoid vaccine, live, oral 1996 [facility] typhoid vaccine, live, oral 01/08/97 Given Ambulat ory Pharmac y yellow fever vaccine 1996 [id number] [facility] ed yellow fever vaccine 01/08/97 Given Ambulat ory Pharmac y typhoid vaccine, live, oral 0 1996 25 [facility] complet ed typhoid vaccine, live, oral DoD yellow fever vaccine 0 1996 [id number] 37 [facility] ([facility] complet ed yellow fever vaccine DoD hepatitis B adult vaccine 1996 [id number] 43 [facility] complet ed hepatitis B adult vaccine 12/09/96 Given Ambulat ory Pharmac y hepatitis B vaccine, adult dosage 3 1996 [id number] 43 [facility] ([facility] complet ed hepatitis B vaccine, adult [...] and other laboratory results from Department of Defense and Veterans Affairs, ranging from 15 months to all on record, depending upon the facility. Order Name Results Value Reference Range Date Interpretation Specimen Comments Source Infectiou s Disease HIV-1/O/2 Non-Reac tive 1 (10/14/23 4:08 [...] Prevention' s HIV diagnostic algorithm. Refer to [facility] Lab Guide for additional information : [email or web address] x Testing performed by Berhane cesar. [id number] [employer]LO[employer] EPILAB Miscellan eous Sendouts Repository Sample Received (10/14/23 4:08 PM) 10/13 N 5600A-U [employer] EPILAB Encounters Combined list of: 1) Encounters from Department of Veterans Affairs facilities going backup to the last 18 months, not all VA inpatient encounters are included; 2) Encounters from the Department of Defense facilities going backup to 280 months. Location Location Details Encounter Type Encounter Number Reason For Visit Attending Provider ADM Date DC Date Status Disposition Source Theater [facility] OUTPATIENT [id number] 02/08 Released w/o Limitations Theater Facilit [facility] [place] [place] [address](AFN G [address] Med Sq-FM) OUTPATIENT [id number] Notes Entered by: DANIELLA PULLIAM 13 Oct 2017 1511 ------- ------- ------- ------- -- TrisSUGEY Benitez 10/13 Released w/o Limitations [facility] [place] [address](A FNG [address] Med Sq-FM) [facility] [place] [address](AFN G 133 Med Sq-FM) OUTPATIENT [id number] Notes Entered by: IRWIN STARR 04 Oct 2018 1456 ------- ------- ------- ------- -- Tri-SHANNAN Alcala 10/04 Released w/o Limitations [facility] [place] [address](A FNG [address] Med Sq-FM) [facility] [place] [address](AFN G [address] Med Sq-FM) OUTPATIENT [id number] Notes Entered by: Teresa WANG 12 Oct 2019 1102 ------- ------- ------- ------- -- TriKAY Lozano 10/11 Released w/o Limitations [facility] [place] [address](A FNG [address] Med Sq-FM) [facility] [place] [address](AFN G [address] Med Sq-FM) OUTPATIENT [id number] Notes Entered by: Teresa WANG 06 Oct 2021 1249 ------- ------- ------- ------- -- Tri DARREN Farrell 10/06 Released w/o Limitations [facility] [place] [address]([facility] [address]) Procedures Combined list of: 1) Procedures from [facility] facilities going back up to thelast 18 months, not all OR non-surgical procedures are included; 2) All procedures [...] smoking status NHIS LIFETIME NON-TOBACCO USER 08/25/2010 [facility] This section is an empty social history section. [facility] Assessment and Plan Combined list of future care activities from [facility] facilities (e.g., assessment and plan notes, appointments, orders, and referrals). Additional future care activities may be listed in the Plan of Care section. Result Assessment and Plan Date Source Assessment and Plan No data available for this section 12/14/2024 [facility] Functional Status Combined list of recent functional and cognitive assessments recorded at [facility] ([facility] Functional [place] Measurement (FIM) Scale: 1 = Total Assistance (Subject = 0% +), 2 = Maximal Assistance (Subject = 25% +), 3 = Moderate Assistance (Subject = 50% +), 4 = Minimal Assistance (Subject = 75% +), 5 = Supervision, 6 = Modified [place] (Device), 7 = Complete [place] (Timely, Safely). Assessment Date/Time Source Assessment Type Assessment Skill Assessment Score Assessment Details No data available for this section
--- OUTSIDE RECORDS SUMMARY | 2024-12-13 19:30 | XMS_ITS | Clinical Summary ---
Author Organization [facility] Address [address] [place] [address] Care Team Providers Care Scientific Linguist Name Role Phone Jason Dorado MD Primary Care Provider [phone] Pepper Mccrary Unavailable [phone] Allergies Active Allergy Reactions Criticality Noted Date Comments Cats (Fur, Dander, Saliva) Runny Nose 9 Mold Extracts Runny Nose 10/04/2018 Tree And Shrub Pollen Runny Nose 12/30/2022 Medications loratadine (CLARITIN) 10 mg tablet Take 1 tablet by mouth once daily. Seasonally PRN 0 02/04/20 18 Active multivit-min/fol ic/vit K/lycop (MEN'S MULTIVITAMIN ORAL) Take by mouth. Activ e fish oil/borage/flax/ om3,6,9 1 (OMEGA 3-6-9 ORAL) Take by mouth. Act brittany semaglutide (weight loss) (Wegovy) 1.7 mg/0.75 mL subcutaneous penIndications:O besity (BMI 30-39.9) Inject 1.7 mg subcutaneous once weekly for 28 days. 3 mL 01/08/20 25 025 Active APPLE CIDER VINEGAR ORAL Take by mouth. 025 Discontin ued(*Oxana ent states no longer taking) semaglutide (weight loss) (Wegovy) 0.5 mg/0.5 mL subcutaneous penIndications:O besity (BMI 30-39.9) Inject 0.5 mg subcutaneous once weekly for 28 days. 2 mL 11/13/19 25 025 Discontin ued(*Medi cation adjustmen t) semaglutide (weight loss) (Wegovy) 1 mg/0.5 mL subcutaneous penIndications:O besity (BMI 30-39.9) Inject 1 mg subcutaneous once weekly for 28 days. 2 mL 12/11/19 25 025 Discontin ued(*Medi cation adjustmen t) semaglutide (weight loss) (Wegovy) 2.4 mg/0.75 mL subcutaneous penIndications:O besity (BMI 30-39.9) Inject 2.4 mg subcutaneous once weekly. 9 mL 3 02/05/20 25 025 Discontin ued(*Medi cation adjustmen t) Active Problems Problem Noted Date Diagnosed Date Colon polyp 09/26/2024 Overview (09/26/2024): Colonoscopy 09/2024 polyp, repeat in 7 years Cervical spinal stenosis 07/24/2024 Other male erectile dysfunction 05/20/2023 Overview (05/20/2023): May 2023: Trying Sildenafil (generic Viagra). Arthralgia of shoulder 05/04/2023 Adult BMI > 30 06/11/2016 Sleep disturbance 07/16/2013 Hypercholesteremia 02/09/2013 Overweight(278.02) 10/28/2010 Overview (04/07/2011): Weight loss with phentermine 2010 Allergic rhinitis, cause unspecified 04/06/2007 Overview (04/06/2007): summer fall Calcaneal spur 01/04/2007 Resolved Problems Problem Noted Date Diagnosed Date Resolved Date Acute upper respiratory infe ctions of unspecified site 01/12/2006 04/06/2007 Unspecified asthma, with exacerbation 01/12/2006 04/06/2007 Encounters Date Type Department Care Team Description 12/10/2024 7:00 AM CDT Office Visit [facility] [address] [place] [place] [address] Jason Dorado MD Follow Up (Follow-up Wegovy - Weight Check/Was not able to get medication covered/Went on-line and ordered through [facility] and started a generic form - started 11/03/2024) 12/09/2024 Travel 12/05/2024 9:30 AM CDT Office Visit [facility] [address] [facility] [place] [address] Pepper Mccrary PA Consult (Gross Hematuria) 12/05/2024 Travel 11/19/2024 Orders Only [facility] Scanner 1 scan: (1-Ord) [facility] CERV[facility] SPINE 2-3 VIEW, 11/19/2024 10/23/2024 Telephone [facility] [address] [place] [place] [address] Jason Dorado MD Prior Authorization (semaglutide (Wegovy) 0.25 mg/0.5 mL subcutaneous pen APPROVED 09/23/24-04/21/25) 10/15/2024 1:00 PM CDT Office Visit [facility] [address] [place] [place] [address] Jason Dorado MD Derm Problem (Check growth on LEFT Eyelid (cholesterol deposit per proof reader)/Discus s possible labs that are due) 10/15/2024 Travel 09/25/2024 Orders Only [facility] [address] [facility] [address] Jason Dorado MD 1 scan: (1-Ord) [facility] 09/25/2024 Lab Requisition [facility] [phone] Braulio Olivares MD 09/24/2024 12:40 PM CDT - 09/24/2024 11:59 PM CDT Hospital Encounter Braulio Olivares MD 09/24/2024 Orders Only [facility] [address] 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 Office Visit [facility] [address] [facility] [address] [place] [address] Treva Olea PA Derm Problem from Last 3 Months Immunizations Immunization Administration Dates Next Due Anthrax Vaccine 02/26/2018, 7,11/29/2015,11/23,10/21/2013,10/25/2009,10/29/2006 ,10/26/2003,04/11/2003,10/20/2002,08/12,01/20/2000 COVID-19 vaccine (Moderna 100mcg/0.5mL) PF MDV 08/13/2020,07/17/2020 Hepatitis A (Adult) 10/21/2013,10/24/1999,1998 Hepatitis B (Adult) 12/09/1996,09/06/1996,1995 Influenza A (H1N1), Inactiva dre (Age >=3 Years) 08/02/2009 Influenza Virus, Unspecified 05/31/2021, 05/04/2020,05/26/2019,04/22,05/28/2017,05/17/2017,05/29/2016 ,05/03/2015,05/25/2014,05/26/2013,04/10,03/28/2011 Influenza, IIV3 (Age >=3 years) 05/25/2014 Influenza, IIV4 05/04/2020, 9,05/28/2017,05/29,04/10/2015 Influenza, Whole Virus 04/11/2003,2001,05/27/2001,07/31,04/25/1999,04/24/1998,04/30/1997 Influenza, split (incl. markos fied surface antigen) 05/30/2010,06/19/2006,05/30/2005 Influenza,LAIV3 Live Intrana kaylie (Flumist) 06/10/2010,04/20/2009,06/24/2007 MMR 10/31/2016 MMR, Unspecified 12/18/2016 Measles 05/11/1996 Meningococcal Vaccine (Menactra) 06/21/2015,05/12 Meningococcal Vaccine (Menomune) 09/26/1999 Oral Polio Vaccine 05/11/1996 Smallpox (Vaccinia) Live [id number] 08/31/2002 Td (Age >=7 Years) 10/31/2016,04/05/1996 Tdap 09/10/2006 Tuberculin (PPD) 04/11/2003, 2,03/18/2001,10/23 Typhoid (injectable) 02/26/2018,11/29/19 16,2013,11/26,2009,11/25/2007,10/28/2001 Typhoid (oral) 01/08/1997 Typhoid Parenteral,Killed 11/27/2005,02/29/2004 Yellow Fever 07/16/2010,01/08/1997 Family History Medical History Relation Name Comments Alcoholism Brother Anxiety disorder Brother Depression Brother Good Health Brother Younger Good Health Daughter Second Cancer-colon Father Cause of Other Father Limited contact COPD Maternal Grandfather cause o f Diabetes Maternal Grandfather Heart Disease Maternal Grandfather Cancer Maternal Grandmother cause o f Diabetes Maternal Grandmother Hyperlipidemia Maternal Grandmother Hypertension Maternal Grandmother Obesity Maternal Grandmother Diabetes Mother Hyperlipidemia Mother Obesity Mother Other Mother Overweight Cancer Paternal Grandfather cause o f Diabetes Paternal Grandfather Good Health Paternal Grandfather Diabetes Paternal Grandmother cause o f Good Health Son Older Relation Name Status Comments Brother Daughter Father Maternal Grandfather Maternal Grandmother Mother Paternal Grandfather Paternal Grandmother Son Social History Tobacco Use Types Packs/Day Years Used Date Smoking Tobacco: Never Passive Smoke Exposure: Never Smokeless Tobacco: Never Tobacco Cessation:Counseling Given: Not Answered Comments:never Alcohol Use Standard Drinks/Week Comments Not Currently 0 (1 standard drink = 0.6 oz pur e alcohol) 1-2 every 3-4 months PHQ-2 Answer Date Recorded PHQ-2 TOTAL SCORE 0 04/20/2024 Social Connections Answer Date Recorded Do you often feel lonely or isolated from those around you? 0 04/20/2024 Financial Resource Strain Answer Date R ecorded Difficulty of Paying Living Expenses 3 04/20/2024 Difficulty of Paying Living Expenses Not on file 04/20/2024 Food Insecurity Answer Date Recorded Do you worry your food will run out before you are able to buy more? 1 04/20/2024 Transportation Needs Answer Date Record ed Does lack of transportation keep you from medica l appointments? 1 04/20/2024 Does lack of transportation keep you from work, meetings or getting things that you need? 1 04/20/2024 Housing Stability Answer Date Recorded What is your housing situation today? 1 04/20/2024 Utilities Answer Date Recorded Do you have trouble paying f or utilities (for example, heat, electricity, water, phone)? 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 Not on file Not on file No t on file Obstetrics History Last Filed Vital Signs Vital Sign Reading Time Taken Comments Blood Pressure 119/72 12/10/2024 7:01 AM CDT Pulse 64 12/10/2024 7:01 AM CDT Temperature 37 C (98.6 F) 07/24/2024 6:30 PM POWER SHOVEL OPERATOR HELPER Respiratory Rate 16 07/24/2024 7:26 PM POWER SHOVEL OPERATOR HELPER Oxygen Saturation 96% 12/10/2024 7:01 AM CDT Inhaled Oxygen Concentration - - Weight 116 kg (255 lb 11.2 oz) 12/10/2024 7:01 A M CDT Height 191.8 cm (6' 3.5) 12/10/2024 7:01 AM CDT Body Mass Index 31.54 12/10/2024 7:01 AM CDT Plan of Treatment Upcoming Encounters Date Type Department Care Team (Late st Contact Info) Description 01/17/2025 8:00 AM CDT Procedure Only [address] [place] [address] Sohail Sanchez MD [address] [facility] [place] [address] Health Maintenance Due Date Last Done Comments HIV for age 15-65 1992 COVID-19 vaccine series ( season) 2024 08/13/2020, 07/17/2020 Influenza Vaccine (Season Ended) 2025 05/31/2021, 05/04/2020, 05/04/2020, Additional history exists Depression screening for age 12+ 04/23/2025 04/23/2024, 04/20/2024, 04/20/2024, Additional history exists BMI (ht and wt on same day) for age 18+ 12/10/2025 12/10/2024, 07/20/2024, 10/04/2023, Additional history exists Tetanus booster 10/31/2026 10/31/2016, 03/09/2006, 04/05/1996 Lipids for age 45-75 12/10/2029 12/10/2024, 01/25/2023, 01/26/2022 Colonoscopy through age 75 09/25/2031 09/24/2024 Hepatitis B series for 19+ Completed 12/09, 09/06/1996, 05/28/1996 Tdap Completed 09/10/2006 Hepatitis C screening for age 18-79 Completed 01/26/2022 Pneumococcal series for age 6-49 Aged Out No longer eligible based on patient's age to complete this topic Medical Devices Implanted Type Area Train Gate Attendant Device Identifier Shelf Expiration Date Model / Serial / Lot Bone Matrix 1cc Polk Dbf Putty Db - [id number] Implanted:Qty: 1 on 07/24/2024 by Bean Sutton MD at [facility] N/A: Spine Medtronic Spine/Ortho [id number] 02/09/2026 [id number] / [id number] / [id number] Bone Matrix 1cc Janie Dbf Putty Db - [id number] Implanted:Qty: 1 on 07/24/2024 by Bean Sutton MD at [facility] N/A: Spine Medtronic Spine/Ortho [id number] 04/11/2026 [id number] / [id number] / [id number] Spacer Cage [id number] 4.6 Deg Peek - [id number] Implanted:Qty: 1 on 07/24/2024 by Bean Sutton MD at [facility] N/A: Spine Medtronic Spine/Ortho 09/22/2031 [id number] / / [id number] Plate Cerv 1lvl 23mm [place] Vision Elite Ant - [id number] Implanted:Qty: 1 on 07/24/2024 by Bean Sutton MD at [facility] N/A: Spine Medtronic Spine/Ortho [id number] / / Screw Cerv Ant 4x14mm [place] Translational Va Slf Tppng - [id number] Implanted:Qty: 2 on 07/24/2024 by Bean Sutton MD at [facility] N/A: Spine Medtronic Spine/Ortho [id number] / / Screw Cerv Ant 4x16mm [place] Translational Va Slf Tppng - [id number] Implanted:Qty: 2 on 07/24/2024 by Bean Sutton MD at [facility] N/A: Spine Medtronic Spine/Ortho [id number] / / Procedures Procedure Name Priority Date/Time Associated Diagnosis Comments LIPID PANEL W REFLEX MEASURED LDL Routine 12/10/2024 7:49 AM CDT Obesity (BMI 30-39.9) Hypercholesteremia GLUCOSE, FASTING Routine 12/10/2024 7:49 AM CDT Obesity (BMI 30-39.9) Prediabetes HEMOGLOBIN A1C Routine 12/10/2024 7:49 AM CDT Obesity (BMI 30-39.9) Prediabetes PATH URINE CYTOLOGY Routine 12/05/2024 1 0:12 AM CDT History of gross hematuria UA W/ SEDIMENT EXAM REFLEXED PER CRITERIA Add On 12/05/2024 10:12 AM CDT History of gross hematuria URINE CULTURE Routine 12/05/2024 10:12 AM CDT History of gross hematuria URINALYSIS MICROSCOPIC Routine 12/05/2024 10:12 AM CDT History of gross hematuria SCAN-RADIOLOGY REPORT 11/19/2024 12:00 AM CDT LAB TRACKING EVENT Routine 09/24/2024 2: 41 PM CDT PATH TISSUE EXAM Routine 09/24/2024 2:41 PM CDT COLONOSCOPY SCREENING Routine 09/24/2024 12:00 AM CDT Screen for colon cancer ANTI HCV Routine 01/26/2022 11:47 AM CDT Need for hepatitis C screening test SURGICAL PROCEDURE (TYPE PROCEDURE DESCRIPTION BELOW) Encounter for screening colonoscopy from Last 3 Months or Most Recently Relevant to Health Maintenance Results * HEMOGLOBIN A1C (12/10/2024 7:49 AM CDT) HEMOGLOBIN A1C 5.5 <5.7 % [facility] Comment: For the purpose of screening for the presence of diabetes: <5.7% Consistent with the absence of diabetes 5.7-6.4% Consistent with increased risk for diabetes (prediabetes) > or =6.5% Consistent with diabetes This assay result is consistent with a decreased risk of diabetes. Currently, no consensus exists regarding use of hemoglobin A1c for diagnosis of diabetes in children. According to [place] Diabetes Association (ADA) guidelines, hemoglobin A1c <7.0% represents optimal control in non- diabetic patients. Different metrics may apply to specific patient populations. Standards of Medical Care in Diabetes(ADA). Blood BLOOD SPECIMEN / Unknown 12/10/2024 7:49 AM CDT 12/10/2024 7:52 AM CDT Narrative [facility] - 12/11/2024 3:51 AM CDT FASTING:YES FASTING: YES us Jason Dorado MD CHEMISTRY Final Res ult [facility] [place] [place] [address] [place] [address], [place] [phone] [facility] [address] [place] [address] * (ABNORMAL) LIPID PANEL W REFLEX MEASURED LDL (12/10/2024 7:49 AM CDT) CHOLESTEROL, TOTAL 241(H) <200 mg/dL [facility] [place] HDL CHOLESTEROL 30(L) > OR = 40 mg/dL [facility] [place] TRIGLYCERIDES 157(H) <150 mg/dL [facility] LDL-CHOLESTEROL 181(H) mg/dL (calc) [facility] vikki Ahuja Comment: Reference range: <100 Desirable range <100 mg/dL for primary prevention; <70 mg/dL for patients with CHD or diabetic patients with > or = 2 CHD risk factors. LDL-C is now calculated using the Braulio-Mu calculation, which is a validated novel method providing better accuracy than the Friedewald equation in the estimation of LDL-C. Braulio WILKINS et al. GARY. 2013;310(19): 9474-2878 (http://education.M2G/faq/NZO758) CHOL/HDLC RATIO 8.0(H) <5.0 (calc) [facility] [place] NON HDL CHOLESTEROL 211(H) <130 mg/dL (calc) [facility] Ahuja Comment: For patients with diabetes plus 1 major ASCVD risk factor, treating to a non-HDL-C goal of <100 mg/dL (LDL-C of <70 mg/dL) is considered a therapeutic option. Blood BLOOD SPECIMEN / Unknown 12/10/2024 7:49 AM CDT 12/10/2024 7:52 AM CDT Narrative [facility] - 12/11/2024 3:23 AM CDT FASTING:YES FASTING: YES us Jason Dorado MD CHEMISTRY Final Res ult [facility] [address] [place] [address], [place] [phone] [facility] [address] [facility] [place] [address] * GLUCOSE, FASTING (12/10/2024 7:49 AM CDT) GLUCOSE 84 65 - 99 mg/dL [facility] Comment: Fasting reference interval Blood BLOOD SPECIMEN / Unknown 12/10/2024 7:49 AM CDT 12/10/2024 7:52 AM CDT Narrative [facility] - 12/11/2024 3:23 AM CDT FASTING:YES FASTING: YES Jason Dorado MD CHEMISTRY Final Res ult [facility] [address] [place] [address], [place] [address] [place] [address] * PATH URINE CYTOLOGY (12/05/2024 10:12 AM CDT) Case Report Medical Cytology Report Case: [id number] Authorizing Provider: Pepper Mccrary PA Collected: 12/05/2024 1012 Ordering Location: [facility] Received: 12/05/2024 1012 Clinic Pathologist: Gabriella Joe DO Specimen: Urine Void 12/06/2024 5:09 PM CDT [facility] ENTRAL LABORATORY Final Diagnosis A) URINE, VOIDED, CYTOLOGY: 1. Negative for high-grade urothelial carcinoma 12/06/2024 5:09 PM CDT [facility] at 1709 CDT Comment A) According to the Agueda System of reporting urinary cytology, the diagnosis of negative for high-grade urothelial carcinoma indicates the sample is composed of benign urothelial cells and that cells of high-grade urothelial carcinoma are absent. This does not exclude benign and low-grade urothelial neoplasia. 12/06/2024 5:09 PM CDT [facility] Clinical Information Hematuria 12/06/2024 5:09 PM CDT [facility] Gross Description A) SOURCE: Urine, Voided The specimen consists of 30 cc of light gold clear fluid from which the following is prepared: -1 Papanicolaou stained ThinPrep slide 12/06/2024 5:09 PM CDT [facility] Microscopic Description Specimen adequacy: Adequate for interpretation. All slides were reviewed. The microscopic appearance substantiates the diagnosis. 12/06/2024 5:09 PM CDT [facility] Additional Information Cytology is screened at [facility] - [address], [place] [address] and [facility] - [address] [place] [address] and Laboratory - [address] [place] [address] Interpreted at [facility] - [address], [place] [address] 12/06/2024 5:09 PM CDT [facility] Urine URINE SPECIMEN / Unknown Non-Blood / Unknown 12/05/2024 10:12 AM CDT 12/05/2024 10:12 AM CDT us Pepper PENALOZA PATHOLOGY/CYTOLOGY Final Result [facility] [address] [place] [address], * URINALYSIS MICROSCOPIC (12/05/2024 10:12 AM CDT) RBC None Seen 0-2, None Seen /HPF 12/05/2024 10:48 AM CDT [facility] WBC None Seen 0-2, 3-5, None Seen /HPF 12/05/2024 10:48 AM CDT [facility] BACTERIA None Seen None Seen, Rare, Few Bacteria/ HPF 12/05/2024 10:48 AM CDT [facility] EPITHELIAL CELLS Few None Seen, Few Epi/HPF 12/05/2024 10:48 AM CDT [facility] Urine URINE SPECIMEN / Unknown Non-Blood / Unknown 12/05/2024 10:12 AM CDT 12/05/2024 10:12 AM CDT Pepper PENALOZA URINE Final Res ult Performing Organization Address [facility]/ZIP Co de Phone Number [facility] [address] [place] [address] * URINE CULTURE (12/05/2024 10:12 AM CDT) CULTURE No growth (<1,000 CFU/mL) 12/07/2024 8:19 AM CDT [facility] Urine URINE SPECIMEN / Unknown Non-Blood / Unknown 12/05/2024 10:12 AM CDT 12/05/2024 10:12 AM CDT Pepper PENALOZA MICROBIOLOGY Final Res ult Performing Organization Address City/[facility]/ZIP Co de Phone Number [facility] [address] [place] [address], [place] * STAT Urinalysis w/ reflex to Microscopic (12/05/2024 10:12 AM CDT) COLOR Yellow Yellow Color 12/05/2024 10:[address] [facility] CLARITY Clear Clear Clarity 12/05/2024 10:[address] [facility] SPECIFIC GRAVITY,URINE 1.015 1.010, 1.015, 1.020, 1.025 12/05/2024 10:[address] [facility] PH,URINE 7.0 6.0, 7.0, 8.0, 5.5, 6.5, 7.5, 8.5 12/05/2024 10:[address] [facility] UROBILINOGEN, QUALITATIVE Normal Normal EU/dl 12/05/2024 10:[address] [facility] PROTEIN, URINE Negative Negative mg/dL 12/05/2024 10:38 AM CDT [facility] GLUCOSE, URINE Negative Negative mg/dL 12/05/2024 10:38 AM CDT [facility] KETONES,URINE Negative Negative mg/dL 12/05/2024 10:38 AM CDT [facility] BILIRUBIN,URI NE Negative Negative 12/05/2024 10:38 AM CDT [facility] OCCULT BLOOD,URINE Negative Negative 12/05/2024 10:38 AM CDT [facility] NITRITE Negative Negative 12/05/2024 10:38 AM CDT [facility] LEUKOCYTE ESTERASE Negative Negative 12/05/2024 10:38 AM CDT [facility] Urine URINE SPECIMEN / Unknown Non-Blood / Unknown 12/05/2024 10:12 AM CDT 12/05/2024 10:34 AM CDT us Pepper PENALOZA URINE Final Res ult [facility] [address] [place] [address] * SCAN-RADIOLOGY REPORT (11/19/2024 12:00 AM CDT) Anatomical Region Laterality Modality Other us Scanner OTHER Final Result * LAB TRACKING EVENT (09/24/2024 2:41 PM CDT) Other (Other) Client Collect / Unknown 09/24/2024 2:41 PM CDT 09/25/2024 4:58 PM CDT us Braulio Olivares MD LAB BILL ONLY Final Res ult [facility] [address] [place] [address], * PATH TISSUE EXAM (09/24/2024 2:41 PM CDT) Case Report Pathology Report Case: [id number] Authorizing Provider: Braulio Olivares MD Collected: 09/24/2024 1441 Ordering Location: [facility] Received: 09/25/2024 1715 Pathologist: Raphael Love MD Specimen: Ascending Colon Biopsy 09/26/2024 10:02 AM CDT [facility] Final Diagnosis A) COLON, ASCENDING, BIOPSY: 1. Nondiagnostic, scant specimen did not survive processing 2. See gross description 09/26/2024 10:02 AM CDT [facility] at 1002 CDT Clinical Information Mr. Valdes is a 48 y.o. who undergoes screening colonoscopy. This is the patient's first colonoscopy. 09/26/2024 10:02 AM CDT [facility] Gross Description A) Received in formalin is a scant aggregate of mucosa measuring 0.1 x 0.1 x 0.1 cm, which is filtered and entirely submitted in one cassette. It is labeled with the patient's name and designated ascending polyp. The specimen may not survive histologic processing. Tash Sutton 09/25/2024 6:13 PM 09/26/2024 10:02 AM CDT [facility] Microscopic Description The final diagnosis is based on microscopic examination of appropriate sections of all specimens. 09/26/2024 10:02 AM CDT [facility] Additional Information Interpreted at [facility] - [address], [place] [address] 09/26/2024 10:02 AM T [facility] Other (Ascending Colon Biopsy) 09/24/2024 2:41 PM CDT 09/25/2024 5:15 PM CDT Braulio Olivares MD PATHOLOGY/CYTOLOGY Final Result [facility] [address] [place] [address], * COLONOSCOPY SCREENING (09/24/2024 12:00 AM CDT) Jason Dorado MD GI PROCEDURE ORD Final Re sult * ANTI HCV (01/26/2022 11:47 AM CDT) HEPATITIS C ANTIBODY Non-React brittany Non-React brittany 01/27/2022 4:03 AM CDT [facility] TRAL LABORATORY Comment:Antibodies to HCV no t detected; does not exclude the possibility of exposure to HCV. Blood BLOOD SPECIMEN / Unknown Venipuncture / Unknown 01/26/2022 11:47 AM CDT 01/26/2022 11:48 AM CDT us Lidia PENALOZA SEND OUTS Final Resu lt [facility] [address] [place] [address], [place] from Last 3 Months or Most Recently Relevant to Health Maintenance Insurance [facility] * Guarantor: PADMINI [employer] Account Type Relation to Patient Date of Phone Billing Address Workers [employer] [id number] [id number] [facility] Advance Directives * Full Code (Latest Code Status on File) Date Activated Date Inactivated Comments 07/24/2024 3:49 PM 07/24/2024 9:43 PM Question Answer Comments Code Status Discussion: Per Existing Order * Full Code Date Activated Date Inactivated Comments 07/24/2024 8:31 AM 07/24/2024 3:49 PM Question Answer Comments Code Status Discussion: Unable to Assess Preferences, Provider to review later Care Teams Scientific Linguist Relationship Specialty Start Date End Date Jason Dorado MD [address] [place] [address] PCP - General Family Practice 07/23/24 Pepper Mccrary PA [address] [facility] [place] [address] Physician Inbound Ingredient Logistics Specialist 12/05/24
[2024-12-13 19:35] VITALS: BP 121/79; PULSE 110; RESP 18; TEMP 36.4; O2SAT 98; BMI 31.2
--- NOTE | 2024-12-13 19:36 | CRLHL7_ITS ---
For Patients: As a result of the Century Cures Act, medical imaging exams and procedure reports are released immediately into your electronic medical record. You may view this report before your referring provider. If you have questions, please contact your health care provider. Indication: Thumb pain. Technique: Three x-ray views of the left thumb. Comparison: None. Findings/impression: Bones: Alignment is normal. No fractures or bone lesions. Joint spaces: Unremarkable. Soft tissues: Unremarkable. Dictated by Sixto Smith MD @ 12/13/2024 9:02:26 PM (Electronically Signed)
--- NOTE | 2024-12-13 20:06 | ED.UPPEXIN ---
HPI - Extremity Injury (Upper) General Date Seen: 12/13/24 Chief Complaint: Extremity Pain/Injury, Upper Stated Complaint: L thumb injury Time Seen by Provider: 12/13/24 19:29 Source: patient Mode of arrival: ambulatory Limitations: no limitations History of Present Illness HPI narrative: Patient is a 49-year-old gentleman who of hit his left thumb, will he was working on his lawnmower, he complains of pain in the IP joint. Of his left thumb, comes in, I with this no numbness tingling weakness no open wound, complaint: injury to: left Other injuries: none Hand dominance: Left Place: home Severity: moderate Relieving factors: none Associated symptoms: denies other symptoms Related Data Home Medications ?Medication ?Instructions ?Recorded ?Confirmed No Known Home Medications 04/19/24 04/19/24 Allergies Allergy/AdvReac Type Severity Reaction Status Date / Time No Known Drug Allergies Allergy Verified 04/19/24 01:48 Review of Systems Status of ROS: Reports: 6 or more systems reviewed and unremarkable except as noted in History and below PFSH PFS Social History Smoking Status: Never smoker Second hand tobacco smoke exposure: No How often do you have a drink containing alcohol: never AUDIT-C Alcohol total score: 0 Non-prescribed substance use: denies use Exam Narrative: Exam Narrative: He is sore in his IP joint of his left thumb, there is some [id number]-[id number] swelling, no hematoma noted, no angulation or displacement obvious. He has no tenderness noted of his MCP, or is thenar area at all. There is no altered sensation, cap refill is normal, nail otherwise appears normal Const: Vital Signs, click to edit/add: Vital Signs - 24 hr 12/13/24 19:35 Temperature 97.6 F Pulse Rate [Right Pulse Oximeter] 110 H Respiratory Rate 18 Blood Pressure [Ri ght Upper Arm] 121/79 Pulse Oximetry 98 Oxygen Delivery Me thod Room Air Documenting provider has reviewed patient's vital signs: yes Course Course ED Course: I did place a stack finger splint on him, gave him directions, to using this. Vital Signs Vital signs: Initial Vital Signs Temperature 97.6 F 12/13/24 19:35 Temperature Source Temporal Artery Scan 12/13/24 19:35 Pulse Rate 110 H 06/05/25 19:35 Pulse Rhythm Regular 12/13/24 19:35 Respiratory Rate 18 12/13/24 19:35 Blood Pressure 121/79 12/13/24 19:35 Blood Pressure Mean 93 12/13/24 19:35 Blood Pressure Position Sitting 12/13/24 19:35 Pulse Oximetry 98 12/13/24 19:35 Oxygen Delivery Method Room Air 12/13/24 19:35 Vital Signs Temperature 97.6 F 12/13/24 19:35 Pulse Rate 110 H 12/13/24 19:35 Respiratory Rate 18 12/13/24 19:35 Blood Pressure 121/79 12/13/24 19:35 Pulse Oximetry 98 12/13/24 19:35 Oxygen Delivery Method Room Air 12/13/24 19:35 Temperature 97.6 F 12/13/24 19:35 Pulse Rate 110 H 12/13/24 19:35 Respiratory Rate 18 12/13/24 19:35 Blood Pressure 121/79 12/13/24 19:35 Pulse Oximetry 98 12/13/24 19:35 Oxygen Delivery Method Room Air 12/13/24 19:35 MDM - Extremity Injury (Upper) MDM Narrative Medical decision making narrative: We will get an x-ray of his thumb. Medical Records Attestation: I reviewed the patient's medical records. Imaging Data Thumb x-ray: Attestation: I have reviewed the pertinent imaging results. My impression: Negative Radiologist's impression: [place] [address] Diagnostic Imaging Report Patient: Derrick Valdes MR#: [id number] : 1975 Acct:[id number] Loc: ED Service Date: 12/13/[address]: Ordering Physician: Tk Hernandez M.D. Date of Service: 12/13/24 Procedure(s): XR thumb LT Accession Number(s): [id number] cc: Jason Dorado M.D.; Tk Hernandez M.D.~ For Patients: As a result of the Cures Act, medical imaging exams and procedure reports are released immediately into your electronic medical record. You may view this report before your referring provider. If you have questions, please contact your health care provider. Indication: Thumb pain. Technique: Three x-ray views of the left thumb. Comparison: None. Findings/impression: Bones: Alignment is normal. No fractures or bone lesions. Joint spaces: Unremarkable. Soft tissues: Unremarkable. Dictated by Sixto Smith MD @ 12/13/2024 9:02:26 PM (Electronically Signed) Discharge Plan Discharge Clinical Impression: Contusion of left thumb Patient Disposition: Home, Self-Care Condition: Stable Instructions: Contusion in Adults (ED) Additional Instructions: X-ray was negative as read by the radiologist and myself, I would use the splint for the next sort of 5 days, some Tylenol or ibuprofen see how it goes. These things usually swell for probably a 3-4 weeks, has the tissue between the 2 bones, gets a little swollen and some pain. Treatment is the same whether it is broken or not however. Follow-up as needed Activity Level: Light activity Prescriptions: No Action No Known Home Medications Follow Up/Referrals: Jason Dorado MD [Primary Care Provider, Family Practice] Stand Alone Forms: [employer] Info Instructions
--- OUTSIDE RECORDS SUMMARY | 2024-12-13 21:19 | XMS_ITS | Continuity of Care Document ---
Author Name [facility] Organization [facility] Care Team Providers Care Application Counselor Name Role Phone [facility] Unavailable Unavailable Problems Combined list of problems from [facility] and [facility] facilities. It does not include entries that were removed or entered in error. Problem Status Onset Date Problem Type Date of Resolution Comments Source pain in the leg (below the knee) Inactive 02/08/2010 Condition [facility] Backache (ICD-9-CM 724.5) Active Condition [facility] Pain in joint involving shoulder region (ICD-9-CM 719.41) Active Condition [facility] Allergies, Adverse Reactions, Alerts Combined list of allergies from Department [facility] and [facility] facilities. It does not include entries that were removed or entered in error. Substance Category Reaction Severity Reaction type Status Date Reported Comments Source CAT/FELINE PRODUCTS {Cla } Propensity to adverse reactions to substance Unknown Active 9 Unknown Organization M[facility]ACTS (MOLD EXTRACTS) Propensity to adverse reactions to substance Unknown Active 9 Unknown Organization Immunizations Combined list of available immunizations from the [facility] and [facility] facilities. Immunization Series Date Given Administered By Site Reaction Lot Number CVX Code Drug Forklift Wheel Loader Status Comments Source influenza, injectable, quadrivalent- pf 2020 [id number] 150 GlaxoSmithKli ne complet ed influenza , injectabl e, quadrival ent-pf 05/31/21 Given Ambulat ory Pharmac y Influenza, injectable, quadrivalent, preservative free 1 2020 [id number] 150 SmithKline (SKB) complet ed Influenza , injectabl e, quadrival ent, preservat brittany free [facility] COVID Vaccine Moderna 2020 [id number] complet ed COVID Vaccine Moderna 08/13/20 Given Ambulat ory Pharmac y SARS-COV-2 (COVID-19) vaccine, mRNA, spike protein, LNP, preservative free, 100 mcg or 50 mcg dose 2 2020 [id number] 207 Moderna US, Inc. (MOD) complet ed [...] dose 1 2020 [id number] 207 Moderna Workana, Inc. (MOD) complet ed SARS-COV- 2 (COVID-19 ) vaccine, mRNA, spike protein, LNP, preservat brittany free, 100 mcg or 50 mcg dose DoD influenza, injectable, quadrivalent 2019 [id number] 158 Seqirus complet ed influenza , injectabl e, quadrival ent 05/04/20 Given Ambulat ory Pharmac y influenza, injectable, quadrivalent, contains preservative 1 2019 [id number] 158 Seqirus (SEQ) complet ed influenza , injectabl e, quadrival ent, contains preservat brittany DoD influenza, injectable, quadrivalent- pf 2018 [id number] 150 Seqirus complet ed influenza , injectabl e, quadrival ent-pf 05/26/19 Given Ambulat ory Pharmac y Influenza, injectable, quadrivalent, preservative free 1 2018 [id number] 150 Seqirus (SEQ) complet ed Influenza , injectabl e, quadrival ent, preservat brittany free DoD influenza, injectable, quadrivalent- pf 2017 [id number] 150 Seqirus complet ed influenza , injectabl e, quadrival ent-pf 04/22/18 Given Ambulat ory Pharmac y Influenza, injectable, quadrivalent, preservative free 1 2017 [id number] 150 Seqirus (SEQ) comple t ed Influenza , injectabl e, quadrival ent, preservat brittany free DoD typhoid Vi capsular polysaccharid e vac 2017 [id number] 101 sanofi pasteur complet ed typhoid Vi capsular polysacch aride vac 02/26/18 Given Ambulat ory Pharmac y anthrax vaccine 2017 [id number] 24 Emergent Biosolutions complet ed anthrax vaccine 02/26/18 Given Ambulat ory Pharmac y anthrax vaccine 11 2017 [id number] 24 [employer] [place] ([facility]) complet ed anthrax vaccine DoD typhoid Vi capsular polysaccharid e vaccine 10 2017 [id number] 101 Sanofi Pasteur (PMC) complet ed typhoid Vi capsular polysacch aride vaccine DoD influenza, injectable, quadrivalent 2016 [id number] 158 GlaxoSmDailymotionKli ne complet ed influenza , injectabl e, quadrival ent 05/28/17 Given Ambulat ory Pharmac y influenza, injectable, quadrivalent, contains preservative 19 2016 [id number] 158 [facility] (SKB) complet ed influenza , injectabl e, quadrival ent, contains preservat brittany DoD measles/mumps /rubella virus vaccine 2016 [id number] 03 Merck & Company Inc complet ed measles/m umps/rube lla virus vaccine 12/18/16 Given Ambulat ory Pharmac y anthrax vaccine 2016 [id number] 24 Emergent Biosolutions complet ed anthrax vaccine 12/18/16 Given Ambulat ory Pharmac y measles, mumps and rubella virus vaccine 2 2016 [id number] 03 Merck (MSD) complet ed measles, mumps and rubella virus vaccine DoD anthrax vaccine 10 2016 [id number] 24 [employer] [place] ([facility]) complet ed anthrax vaccine DoD tetanus-dipht h toxoids (Td) adult/adol 2016 [id number] 09 sanofi pasteur complet ed tetanus-d iphth toxoids (Td) adult/ado l 10/31/16 Given Ambulat ory Pharmac y measles/mumps /rubella virus vaccine 2016 [id number] 03 Merck & Company Inc complet ed measles/m umps/rube lla virus vaccine 10/31/16 Given Ambulat ory Pharmac y measles, mumps and rubella virus vaccine 1 2016 [id number] 03 Merck (MSD) complet ed measles, mumps and rubella virus vaccine DoD tetanus and diphtheria toxoids, adsorbed, preservative free, for adult use (2 Lf of tetanus toxoid and 2 Lf of diphtheria toxoid) 3 2016 [id number] 09 Sanofi Pasteur (PMC) complet ed tetanus and diphtheri a toxoids, adsorbed, preservat brittany free, for adult use (2 Lf of tetanus toxoid and 2 Lf of diphtheri a toxoid) DoD influenza, seasonal, injectable-pf 2015 [id number] 140 Seqirus complet ed influenza , seasonal, injectabl e-pf 05/29/16 Given Ambulat ory Pharmac y Influenza, seasonal, injectable, preservative free 1 2015 [id number] 140 Seqirus (SEQ) comple t ed Influenza , seasonal, injectabl e, preservat brittany free DoD typhoid Vi capsular polysaccharid e vac 2015 [id number] 101 sanofi pasteur complet ed typhoid Vi capsular polysacch aride vac 11/29/15 Given Ambulat ory Pharmac y anthrax vaccine 2015 [id number] 24 Emergent Biosolutions complet ed anthrax vaccine 11/29/15 Given Ambulat ory Pharmac y anthrax vaccine 9 2015 [id number] 24 [employer] [place] ([facility]) complet ed anthrax vaccine DoD typhoid Vi capsular polysaccharid e vaccine 9 2015 [id number] 101 Sanofi Pasteur (PMC) complet ed typhoid Vi capsular polysacch aride vaccine DoD meningococcal A,C,Y,W-135 (MCV4P) 2014 [id number] 114 sanofi pasteur complet ed meningoco ccal A,C,Y,W-1 35 (MCV4P) 06/21/15 Given Ambulat ory Pharmac y meningococcal polysaccharid e (groups A, C, Y and W-135) diphtheria toxoid conjugate vaccine (MCV4P) 3 2014 [id number] 114 Sanofi Pasteur (PMC) complet ed meningoco ccal polysacch aride (groups A, C, Y and W-135) diphtheri a toxoid conjugate vaccine (MCV4P) DoD influenza, seasonal, injectable-pf 2014 [id number] 140 CSL Behring complet ed influenza , seasonal, injectabl e-pf 05/03/15 Given Ambulat ory Pharmac y Influenza, seasonal, injectable, preservative free 17 2014 [id number] 140 CSL Porphyrioherapies, Inc. (CSL) complet ed Influenza , seasonal, injectabl e, preservat brittany free DoD anthrax vaccine 2014 [id number] 24 Emergent Biosolutions complet ed anthrax vaccine 11/23/14 Given Ambulat ory Pharmac y anthrax vaccine 8 2014 [id number] 24 [facility] complet ed anthrax vaccine DoD influenza, seasonal, injectable-pf 2013 [id number] 140 Novartis Pharmaceutica ls complet ed influenza , seasonal, injectabl e-pf 05/25/14 Given Ambulat ory Pharmac y Influenza, seasonal, injectable, preservative free 16 2013 [id number] 140 Novartis Pharmaceutica l [place]. (NOV) complet ed Influenza , seasonal, injectabl e, preservat brittany free DoD typhoid Vi capsular polysaccharid e vac 2013 [id number] 101 sanofi pasteur complet ed typhoid Vi capsular polysacch aride vac 11/24/13 Given Ambulat ory Pharmac y typhoid Vi capsular polysaccharid e vaccine 8 2013 Q0884-5 101 Sanofi Pasteur ([facility]) complet ed typhoid Vi capsular polysacch aride vaccine DoD anthrax vaccine 2013 [id number] 24 Emergent Biosolutions complet ed anthrax vaccine 10/21/13 Given Ambulat ory Pharmac y hepatitis A adult vaccine 2013 [id number] 52 GlaxoSmithKli ne complet ed hepatitis A adult vaccine 10/21/13 Given Ambulat ory Pharmac y anthrax vaccine 7 2013 [id number] 24 [facility]) complet ed anthrax vaccine DoD hepatitis A vaccine, adult dosage 2 2013 [id number] 52 [facility] (SKB) complet ed hepatitis A vaccine, adult dosage DoD Influenza, injectable, MDCK-pf 2012 [id number] 153 Novartis Pharmaceutica ls complet ed Influenza , injectabl e, MDCK-pf 05/26/13 Given Ambulat ory Pharmac y Influenza, injectable, Madin Katie Canine Kidney, preservative free 1 2012 [id number] 153 Novartis Pharmaceutica l [place]. (NOV) complet ed Influenza , injectabl e, Madin Katie Canine Kidney, preservat brittany free DoD vaccinia (smallpox) vaccine 0 2012 75 () Not Given vaccinia (smallpox ) vaccine DoD influenza, seasonal, injectable-pf 2011 [id number] 140 CSL Behring complet ed influenza , seasonal, injectabl e-pf 04/23/12 Given Ambulat ory Pharmac y Influenza, seasonal, injectable, preservative free 14 2011 [id number] 140 CS Biotherapies, Inc. (CSL) complet ed Influenza , seasonal, injectabl e, preservat brittany free DoD typhoid Vi capsular polysaccharid e vac 2011 [id number] 101 sanofi pasteur complet ed typhoid Vi capsular polysacch aride vac 11/27/11 Given Ambulat ory Pharmac y typhoid Vi capsular polysaccharid e vaccine 1 2011 [id number] 101 Sanofi Pasteur ([facility]) complet ed typhoid Vi capsular polysacch aride vaccine DoD influenza, seasonal, injectable 2010 [id number] 141 CSL Behring complet ed influenza , seasonal, injectabl e 03/28/11 Given Ambulat ory Pharmac y Influenza, seasonal, injectable 1 2010 [id number] 141 [employer]otherapies, Inc. (CSL) complet ed Influenza , seasonal, injectabl e DoD yellow fever vaccine 2010 [id number] 37 sanofi pasteur complet ed yellow fever vaccine 07/16/10 Given Ambulat ory Pharmac y yellow fever vaccine 1 2010 [id number] 37 Sanofi Pasteur (PMC) complet ed yellow fever vaccine [facility] INFLUENZA, LIVE, INTRANASAL 2009 111 complet ed [facility] meningococcal A,C,Y,W-135 (MCV4P) 2009 [id number] 114 sanofi pasteur complet ed meningoco ccal A,C,Y,W-1 35 (MCV4P) 05/30/10 Given Ambulat ory Pharmac y influenza virus vaccine,split 2009 [id number] 15 sanofi pasteur complet ed influenza virus vaccine,s plit 05/30/10 Given Ambulat ory Pharmac y influenza virus vaccine, split virus (incl. purified surface antigen)-reti red CODE 1 2009 [id number] 15 Sanofi Pasteur (PMC) complet ed influenza virus vaccine, split virus (incl. purified surface antigen)- retired CODE DoD meningococcal polysaccharid e (groups A, C, Y and W-135) diphtheria toxoid conjugate vaccine (MCV4P) 1 2009 [id number] 114 Sanofi Pasteur ([facility]) complet ed meningoco ccal polysacch aride (groups A, C, Y and W-135) diphtheri a toxoid conjugate vaccine (MCV4P) DoD typhoid Vi capsular polysaccharid e vac 2009 [id number] 101 sanofi pasteur complet ed typhoid Vi capsular polysacch aride vac 11/24/09 Given Ambulat ory Pharmac y typhoid Vi capsular polysaccharid e vaccine 1 2009 [id number] 101 Sanofi Pasteur ([facility]) complet ed typhoid Vi capsular polysacch aride vaccine DoD anthrax vaccine 2009 [id number] 24 Emergent Biosolutions complet ed anthrax vaccine 10/25/09 Given Ambulat ory Pharmac y anthrax vaccine 6 2009 [id number] 24 [employer] [place] (MIP) complet ed anthrax vaccine DoD Novel influenza-H1N 1-09, injectable 2009 [id number] 1 127 Novartis Pharmaceutica ls complet ed Novel influenza -O5P2-24, injectabl e 08/02/09 Given Ambulat ory Pharmac y Novel influenza-H1N 1-09, injectable 1 2009 [id number] 1 127 Novartis Pharmaceutica l Olivia. (NOV) complet ed Novel influenza -X3N5-75, injectabl e DoD influenza virus vaccine, live 2008 [id number] 111 Medimmune Inc comple t ed influenza virus vaccine, live 04/20/09 Given Ambulat ory Pharmac y influenza virus vaccine, live, attenuated, for intranasal use 1 2008 [id number] 111 MedImmune, Inc. (MED) complet ed influenza [...] vaccine DoD influenza virus vaccine, live 2006 [id number] 111 Medimmune Inc comple t ed influenza virus vaccine, live 06/24/07 Given Ambulat ory Pharmac y influenza virus vaccine, live, attenuated, for intranasal use 1 2006 [id number] 111 [employer] (MED) complet ed influenza virus vaccine, live, attenuate d, for intranasa l use DoD anthrax vaccine 2006 [id number] 24 Emergent Biosolutions complet ed anthrax vaccine 10/29/06 Given Ambulat ory Pharmac y anthrax vaccine 6 2006 [id number] 24 [facility] complet ed anthrax vaccine DoD measles, mumps and rubella virus vaccine 0 2006 03 () Not Given measles, mumps and rubella virus vaccine DoD varicella virus vaccine 0 2006 21 () Not Given varicella virus vaccine DoD tetanus, diphtheria, acellular pertu is 2006 [id number] 115 sanofi pasteur complet ed tetanus, diphtheri a, acellular pertussis 09/10/06 Given Ambulat ory Pharmac y tetanus toxoid, reduced diphtheria toxoid, and acellular pertu is vaccine, adsorbed 1 2006 [id number] 115 Sanofi Pasteur ([facility]) complet ed tetanus toxoid, reduced diphtheri a toxoid, and acellular pertussis vaccine, adsorbed DoD influenza virus vaccine,split 2005 [id number] 15 sanofi pasteur complet ed influenza virus vaccine,s plit 06/19/06 Given Ambulat ory Pharmac y influenza virus vaccine, split virus (incl. purified surface antigen)-reti red CODE 1 2005 [id number] 15 Sanofi Pasteur (PMC) complet ed influenza [...] illed, dried DoD influenza virus vaccine,split 2004 [id number] 15 sanofi pasteur complet ed influenza virus vaccine,s plit 05/30/05 Given Ambulat ory Pharmac y influenza virus vaccine, split virus (incl. purified surface antigen)-reti red CODE 1 2004 [id number] 15 Sanofi Pasteur ([facility]) complet ed influenza virus vaccine, split virus (incl. purified surface antigen)- retired CODE DoD typhoid vaccine, inactivated 2003 [id number] 101 sanofi pasteur complet ed typhoid vaccine, inactivat ed 02/29/04 Given Ambulat ory Pharmac y typhoid vaccine, parenteral, other than acetone-kille d, dried 0 2003 [id number] 41 Sanofi Pasteur ([facility]) complet ed typhoid vaccine, parentera l, other than acetone-k illed, dried DoD anthrax vaccine 2003 [id number] 24 Emergent Biosolutions complet ed anthrax vaccine 10/26/03 Given Ambulat ory Pharmac y anthrax vaccine 5 2003 [id number] 24 [facility] complet ed anthrax vaccine DoD influenza virus vaccine, whole virus 2002 [id number] 16 sanofi pasteur complet ed influenza virus vaccine, whole virus 04/11/03 Given Ambulat ory Pharmac y tuberculin purified protein derivative 2002 [id number] 96 sanofi pasteur complet ed tuberculi n purified protein derivativ e 04/11/03 Given Ambulat ory Pharmac y anthrax vaccine 2002 [id number] 24 [employer] complet ed anthrax vaccine 04/11/03 Given Ambulat ory Pharmac y influenza virus vaccine, whole virus 0 2002 [id number] 16 Sanofi Pasteur ([facility]) complet ed influenza virus vaccine, whole virus DoD anthrax vaccine 4 2002 [id number] 24 [facility] complet ed anthrax vaccine DoD anthrax vaccine 2002 [id number] 24 [employer] complet ed anthrax vaccine 10/20/02 Given Ambulat ory Pharmac y anthrax vaccine 3 2002 [id number] 24 [facility]) complet ed anthrax vaccine DoD vaccinia (smallpox) vaccine 2002 [id number] 75 [employer] complet ed vaccinia (smallpox ) vaccine 08/31/02 Given Ambulat ory Pharmac y anthrax vaccine 2002 [id number] 24 [employer] complet ed anthrax vaccine 08/31/02 Given Ambulat ory Pharmac y anthrax vaccine 2 2002 [id number] 24 [employer] [place] ([facility]) complet ed anthrax vaccine DoD vaccinia (smallpox) vaccine 0 2002 [id number] [facility] vaccinia (smallpox ) vaccine DoD tuberculin purified protein derivative 2001 [id number] 96 sanofi pasteur complet ed tuberculi n purified protein derivativ e 05/15/02 Given Ambulat ory Pharmac y influenza virus vaccine, whole virus 2001 [id number] 16 [facility] complet ed influenza virus vaccine, whole virus 05/15/02 Given Ambulat ory Pharmac y influenza virus vaccine, whole virus 0 2001 [id number] 16 [employer] ([place]) complet ed influenza virus vaccine, whole virus DoD typhoid Vi capsular polysaccharid e vac 2001 [id number] 101 sanofi pasteur complet ed typhoid Vi capsular polysacch aride vac 10/28/01 Given Ambulat ory Pharmac y typhoid Vi capsular polysaccharid e vaccine 0 2001 [id number] 101 Sanofi Pasteur (PMC) complet ed typhoid Vi capsular polysacch aride vaccine DoD influenza virus vaccine, whole virus 2000 [id number] 16 sanofi pasteur complet ed influenza virus vaccine, whole virus 05/27/01 Given Ambulat ory Pharmac y influenza virus vaccine, whole virus 0 2000 [id number] 16 Sanofi Pasteur (PMC) complet ed influenza virus vaccine, whole virus DoD tuberculin purified protein derivative 2000 [id number] 96 [facility] complet ed tuberculi n purified protein derivativ e 03/18/01 Given Ambulat ory Pharmac y influenza virus vaccine, whole virus 2000 [id number] 16 [facility] complet ed influenza virus vaccine, whole virus 07/31/00 Given Ambulat ory Pharmac y influenza virus vaccine, whole virus [id number] [facility] ([place]ANCINE) comple t ed influenza virus vaccine, whole virus DoD anthrax vaccine 1999 [id number] 24 [employer] complet ed anthrax vaccine 01/20/00 Given Ambulat ory Pharmac y anthrax vaccine 3 1999 [id number] 24 [facility]) complet ed anthrax vaccine DoD tuberculin purified protein derivative 1999 [id number] 96 [facility] complet ed tuberculi n purified protein derivativ e 10/24/99 Given Ambulat ory Pharmac y hepatitis A adult vaccine 1999 [id number] 52 Merck & Company Inc complet ed hepatitis A adult vaccine 10/24/99 Given Ambulat ory Pharmac y hepatitis A vaccine, adult dosage 2 1999 [id number] 52 Merck (MSD) complet ed hepatitis A vaccine, adult dosage DoD meningococcal polysaccharid e (MPSV4) 1999 [id number] 32 sanofi pasteur complet ed meningoco ccal polysacch aride (MPSV4) 09/26/99 Given Ambulat ory Pharmac y meningococcal polysaccharid e vaccine (MPSV4) 0 1999 [id number] 32 Sanofi Pasteur (PMC) complet ed meningoco ccal polysacch aride vaccine (MPSV4) DoD hepatitis A adult vaccine 1998 [id number] 52 Merck & Company Inc complet ed hepatitis A adult vaccine 05/30/99 Given Ambulat ory Pharmac y hepatitis A vaccine, adult dosage 1 1998 [id number] 52 Merck (MSD) complet ed hepatitis A vaccine, adult dosage DoD influenza virus vaccine, whole virus 19984932 [id number] 16 [facility] complet ed influenza virus vaccine, whole virus 04/25/99 Given Ambulat ory Pharmac y influenza virus vaccine, whole virus 0 [id number] 16 [facility] (CON) complet ed influenza virus vaccine, whole virus DoD influenza virus vaccine, whole virus 19971412 [id number] 16 [facility] complet ed influenza virus vaccine, whole virus 04/24/98 Given Ambulat ory Pharmac y influenza virus vaccine, whole virus 0 19976947 [id number] 16 [facility] (CON) complet ed influenza virus vaccine, whole virus DoD influenza virus vaccine, whole virus 1996 16 [facility] complet ed influenza virus vaccine, whole virus 04/30/97 Given Ambulat ory Pharmac y influenza virus vaccine, whole virus 0 1996 16 [place] (CON) complet ed influenza virus vaccine, whole virus DoD typhoid vaccine, live, oral 1996 25 [facility] complet ed typhoid vaccine, live, oral 01/08/97 Given Ambulat ory Pharmac y yellow fever vaccine 1996 [id number] 37 [facility] complet ed yellow fever vaccine 01/08/97 Given Ambulat ory Pharmac y typhoid vaccine, live, oral 0 1996 25 [facility] (CON) complet ed typhoid vaccine, live, oral DoD yellow fever vaccine 0 1996 [id number] 37 [facility] (CON) complet ed yellow fever vaccine DoD hepatitis B adult vaccine 1996 [id number] 43 [facility] complet ed hepatitis B adult vaccine 12/09/96 Given Ambulat ory Pharmac y hepatitis B vaccine, adult dosage 3 1996 [id number] 43 [facility] (CON) complet ed hepatitis B vaccine, adult [...] Prevention' s HIV diagnostic algorithm. Refer to [facility] Lab Guide for additional information : [email or web address] x Testing performed by Berhane cesar. [id number] EP[employer] Miscellan eous Sendouts Repository Sample Received (10/14/23 4:08 PM) 10/13 N [employer] EP[employer] Encounters Combined list of: 1) Encounters from Department of Veterans Affairs facilities going backup to the last 18 months, not all [facility] inpatient encounters are included; 2) Encounters from the Department of Defense facilities going backup to 280 months. Location Location Details Encounter Type Encounter Number Reason For Visit Attending Provider ADM Date DC Date Status Disposition Source [facility] OUTPATIENT [id number] 02/08 Released w/o Limitations [facility] [place] [place] [facility] [place] [address](AFN G [address] S[address]-FM) OUTPATIENT [id number] Notes Entered by: DANIELLA PULLIAM 13 Oct 2017 1511 ------- ------- ------- ------- -- TrisSUGEY Benitez 10/13 Released w/o Limitations [facility] [place] [address](A FNG [address] Med Sq-FM) [place] [address](AFN G [address] Med Sq-FM) OUTPATIENT [id number] Notes Entered by: IRWIN STARR 04 Oct 2018 1456 ------- ------- ------- ------- -- Tri-SHANNAN Alcala 10/04 Released w/o Limitations [facility] [place] [address](A FNG [address] Med Sq-FM) [place] [address](AFN G [address] Med Sq-FM) OUTPATIENT [id number] Notes Entered by: Teresa WANG 12 Oct 2019 1102 ------- ------- ------- ------- -- TriKAY Lozano 10/11 Released w/o Limitations [facility] [place] [address](A FNG [address] Med Sq-FM) [place] [address](AFN G [address] Med Sq-FM) OUTPATIENT [id number] Notes Entered by: Teresa WANG 06 Oct 2021 1249 ------- ------- ------- ------- -- Tri DARREN Farrell 10/06 Released w/o Limitations [facility] [place] [address](A FNG 133 Med Sq-FM) Procedures Combined list of: 1) Procedures from Department of Veterans Affairs facilities going back up to thelast 18 months, not all [place] non-surgical procedures are included; 2) All procedures [...] smoking status NHIS LIFETIME NON-TOBACCO USER 08/25/2010 [facility] This section is an empty social history section. [facility] Assessment and Plan Combined list of future [...] at Department of Defense and [place] Affairs ([place]VA Functional Riparius Measurement (FIM) Scale: 1 = Total Assistance (Subject = 0% +), 2 = Maximal Assistance (Subject = 25% +), 3 = Moderate Assistance (Subject = 50% +), 4 = Minimal Assistance (Subject = 75% +), 5 = Supervision, 6 = Modified Riparius (Device), 7 = Complete Riparius (Timely, Safely). Assessment Date/Time Source Assessment Type Assessment Skill Assessment Score Assessment Details No data available for this section
[2024-12-13 21:21] VITALS: BP 118/74; PULSE 99; RESP 18; TEMP 36.4; O2SAT 98
[2024-12-13 21:22] VITALS: BP 118/74; PULSE 99; RESP 18; TEMP 36.4
== END 2024-12-13 21:22 | disposition home or self-care (01) ==
LOC: ED 21:18
PROVIDERS: Emergency Provider Family Medicine; PCP Family Medicine
DX: S60.012A Contusion of left thumb without damage to nail, initial encounter (principal)
CPT/HCPCS: 73140; 99283

== ENCOUNTER 2025-05-10 09:23 | Emergency (ER) | payer BC, SELFPAY ==
--- OUTSIDE RECORDS SUMMARY | 2025-05-10 09:26 | XMS_ITS | Clinical Summary ---
Author Organization [employer] [facility] Address [address] [place] [address] Care Team Providers Care R D Internship Name Role Phone Jason Dorado MD Primary Care Provider [phone] Pepper Mccrary PA Unavailable [phone] Allergies Active Allergy Reactions Criticality Noted Date Comments Cats (Fur, Dander, Saliva) Runny Nose 9 Mold Extracts Runny Nose 10/04/2018 Tree And Shrub Pollen Runny Nose 12/30/2022 Medications loratadine (CLARITIN) 10 mg tablet Take 1 tablet by mouth once daily. Seasonally PRN 0 8 Active multivit-min/foli c/vit K/lycop (MEN'S MULTIVITAMIN ORAL) Take by mouth. Activ e fish oil/borage/flax/o m3,6,9 1 (OMEGA 3-6-9 ORAL) Take by mouth. Act brittany albuterol HFA 90 mcg/actuation inhalerIndication s:Bronchitis Inhale 2 Puffs by mouth every 4 hours if needed for Wheezing or Shortness Of Breath. 18 g 5 Active predniSONE 20 mg tabletIndications :Bronchitis Take 2 Tablets (40 mg) by mouth once daily. 12 Tablet 5 Active Active Problems Problem Noted Date Diagnosed Date [...] 04/06/2007 Unspecified asthma, with exacerbation 01/12/2006 04/06/2007 Immunizations Immunization Administration Dates Next Due Anthrax Vaccine 02/26/2018, 7,11/29/2015,11/23,10/21/2013,10/25/2009,10/29/2006 ,10/26/2003,04/11/2003,10/20/2002,08/12,01/20/2000 COVID-19 vaccine (Moderna 100mcg/0.5mL) PF, MDV 08/13/2020,07/17/2020 Hepatitis A (Adult) 10/21/2013,10/24/1999,1998 Hepatitis [...] Oral Polio Vaccine 05/11/1996 Smallpox (Vaccinia) Live [id number] 08/31/2002 Td (Age >=7 Years) 10/31/2016,04/05/1996 Tdap [...] on file 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 Gender Identity Not on file Sexual Orientation Not on file 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 Not on file Not on file No t on file Obstetrics History Last Filed Vital Signs Vital Sign Reading Time Taken Comments Blood Pressure 118/64 01/17/2025 8:06 AM CDT Pulse 62 01/17/2025 8:06 AM CDT Temperature 36.7 C (98 F) 01/11/2025 9:18 AM CDT Respiratory Rate 16 01/11/2025 9:18 AM CDT Oxygen Saturation 94% 01/11/2025 9:18 AM CDT Inhaled Oxygen Concentration - - Weight 112.3 kg (247 lb 9.6 oz) 01/17/2025 8:06 AM CDT Height 191.8 cm (6' 3.5) 12/10/2024 7:01 AM CDT Body Mass Index 30.54 12/10/2024 7:01 AM CDT Plan of Treatment Upcoming Encounters Date Type Department Care Team (Late st Contact Info) Description 07/24/2025 7:30 AM FERRY OPERATOR Office Visit [facility] [address] [place] [address] Pepper Mccrary PA [address] [place] [address] Health Maintenance Due Date Last Done Comments HIV for age 15-65 1992 Influenza Vaccine (#1) 2025 , 05/04/2020, 05/04/2020, Additional history exists Depression screening for age 12+ 04/23/2025 04/23/2024, 04/20/2024, 04/20/2024, Additional history exists BMI (ht and wt on same day) for age 18+ 12/10/2025 12/10/2024, 07/20/2024, 10/04/2023, Additional history exists Tetanus booster 10/31/2026 10/31/2016, 03/09/2006, 04/05/1996 Lipids for age 45-75 12/10/2029 12/10/2024, 01/25/2023, 01/26/2022 Colonoscopy through age 75 09/25/2031 09/24/2024 RSV vaccine for adults or (1 - 1-dose 75+ series) 2052 Hepatitis B series for 19+ Completed 12/09, 09/06/1996, 05/28/1996 Hepatitis C screening for age 18-79 Completed 01/26/2022 Pneumococcal series for age 6-49 Aged Out No longer eligible based on patient's age to complete this topic Medical Devices Implanted Type Area Head Of Strategy Device Identifier Shelf Expiration Date Model / Serial / Lot Bone Matrix 1cc Janie Dbf Putty Dbm - [id number] Implanted:Qty: 1 on 07/24/2024 by Bean Sutton MD at [facility] N/A: Spine Medtronic Spine/Ortho [id number] 02/09/2026 [id number] / [id number] / [id number] Bone Matrix 1cc Bethel Dbf Putty Db - [id number] Implanted:Qty: 1 on 07/24/2024 by Bean Sutton MD at [facility] N/A: Spine Medtronic Spine/Ortho [id number] 04/11/2026 [id number] / [id number] / [id number] 2AF2 Spacer Cage [id number] 4.6 Deg Peek - [id number] Implanted:Qty: 1 on 07/24/2024 by Bean Sutton MD at [facility] N/A: Spine Medtronic Spine/Ortho 09/22/2031 [id number] / / [id number] Plate Cerv 1lvl 23mm [place] Vision Elite Ant - [id number] Implanted:Qty: 1 on 07/24/2024 by Bean Sutton MD at [facility] N/A: Spine Medtronic Spine/Ortho [id number] / / Screw Cerv Ant 4x14mm [place] Translational Va Slf Tppng - [id number] Implanted:Qty: 2 on 07/24/2024 by Bean Sutton MD at [facility] N/A: Spine Medtronic Spine/Ortho [id number] / / Screw Cerv Ant 4x16mm [place] Translational Va Slf Tppng - [id number] Implanted:Qty: 2 on 07/24/2024 by Bean Sutton MD at [facility] N/A: Spine Medtronic Spine/Ortho [id number] / / Procedures Procedure Name Priority Date/Time Associated Diagnosis Comments LIPID PANEL W REFLEX MEASURED LDL Routine 12/10/2024 7:49 AM CDT Obesity (BMI 30-39.9) Hypercholesteremia COLONOSCOPY SCREENING Routine 09/24/2024 12:00 AM CDT Screen for colon cancer ANTI HCV Routine 01/26/2022 11:47 AM CDT Need for hepatitis C screening test from Last 3 Months or Most Recently Relevant to Health Maintenance Results * (ABNORMAL) LIPID PANEL W REFLEX MEASURED LDL (12/10/2024 7:49 AM CDT) CHOLESTEROL, TOTAL 241(H) <200 mg/dL [facility] HDL CHOLESTEROL 30(L) > OR = 40 mg/dL [facility] TRIGLYCERIDES 157(H) <150 mg/dL [facility] LDL-CHOLESTEROL 181(H) mg/dL (calc) [facility] Comment: Reference range: <100 Desirable range <100 mg/dL for primary prevention; <70 mg/dL for patients with CHD or diabetic patients with > or = 2 CHD risk factors. LDL-C is now calculated using the [place] calculation, which is a validated novel method providing better accuracy than the Friedewald equation in the estimation of LDL-C. Braulio WILKINS et al. GARY. 2013;310(19): 1597-0208 (http://education.ShopPad/faq/HBW119) CHOL/HDLC RATIO 8.0(H) <5.0 (calc) [facility] NON HDL CHOLESTEROL 211(H) <130 mg/dL (calc) [facility] Comment: For patients with diabetes plus 1 major ASCVD risk factor, treating to a non-HDL-C goal of <100 mg/dL (LDL-C of <70 mg/dL) is considered a therapeutic option. Blood BLOOD SPECIMEN / Unknown 12/10/2024 7:49 AM CDT 12/10/2024 7:52 AM CDT Narrative [facility] - 12/11/2024 3:23 AM CDT FASTING:YES FASTING: YES us Jason Dorado MD CHEMISTRY Final Res ult [employer] [facility] [address] [place] [address], [facility] [address] [place] [address] * COLONOSCOPY SCREENING (09/24/2024 12:00 AM CDT) us Jason Dorado MD GI PROCEDURE ORD Final Re sult * ANTI HCV (01/26/2022 11:47 AM CDT) HEPATITIS C ANTIBODY Non-React brittany Non-React brittany 01/27/2022 4:03 AM CDT [facility] Comment:Antibodies to HCV no t detected; does not exclude the possibility of exposure to HCV. Blood BLOOD SPECIMEN / Unknown Venipuncture / Unknown 01/26/2022 11:47 AM CDT 01/26/2022 11:48 AM CDT us Lidia PENALOZA SEND OUTS Final Resu lt [facility] [address] [place] [address], [place] from Last 3 Months or Most Recently Relevant to Health Maintenance Insurance [facility] * Guarantor: PADMINI [employer] Account Type Relation to Patient Date of Phone Billing Address Workers Comp [address] [place] [address] OWCP Advance Directives * Full Code (Latest Code Status on File) Date Activated Date Inactivated Comments 07/24/2024 3:49 PM 07/24/2024 9:43 PM Question Answer Comments Code Status Discussion: Per Existing Order * Full Code Date Activated Date Inactivated Comments 07/24/2024 8:31 AM 07/24/2024 3:49 PM Question Answer Comments Code Status Discussion: Unable to Assess Preferences, Provider to review later Care Teams R D Internship Relationship Specialty Start Date End Date Jason Dorado MD [address] [place] [address] PCP - General Family Practice 07/23/24 Pepper Mccrary PA [address] [place] [address] [place] [address] Physician Cone Machine Operator 12/05/24
[2025-05-10 09:32] VITALS: BP 101/70; PULSE 93; RESP 18; TEMP 36.7; O2SAT 95; BMI 28.9
--- NOTE | 2025-05-10 09:48 | ED_ITS ---
HPI - General Adult General Chief complaint: Nausea/Vomiting Stated complaint: Nausea, vomiting History of Present Illness HPI narrative: Patient is a 49-year-old healthy gentleman who has been having nausea and vomiting as well as diarrhea for the last 3-4 days. Patient has had no blood in his stool or vomit. He has really no overt abdominal pain. No chest pain no shortness of breath no fevers no chills no night sweats. Patient is unable to keep up with his hydration at home. Patient's only medication is Ozempic which he took 4 days ago. No other complaints or concerns. Related Data Home Medications ?Medication ?Instructions ?Recorded ?Confirmed semaglutide 2 mg/dose (8 mg/3 mL) 2 mg subcut QWEEK 05/10/25 subcutaneous pen injector (Ozempic) Allergies Allergy/AdvReac Type Severity Reaction Status Date / Time No Known Drug Allergies Allergy Verified 05/10/25 09:40 Review of Systems Status of ROS: Reports: 10 or more systems reviewed and unremarkable except as noted in History and below PFSH [facility] Social History Smoking Status: Never smoker Second hand tobacco smoke exposure: No How often do you have a drink containing alcohol: never AUDIT-C Alcohol total score: 0 Non-prescribed substance use: denies use service: Yes Exam Narrative: Exam Narrative: EXAM GENERAL: Patient appears comfortable and well. EYES: No scleral icterus. LYMPH: No supraclavicular or cervical lymphadenopathy. SKIN: Visible skin seen during exam normal or with benign process only. EXT: No dependent lower extremity pedal edema. HEART: Regular rate and rhythm with no murmurs, rubs, or gallops. LUNGS: Clear to auscultation bilaterally with no crackles or wheezes. ABD: Soft, non tender, non distended. PSYCH: Good eye contact, speech is not pressured. Const: Vital Signs, click to edit/add: Vital Signs - 24 hr 05/10/25 09:32 05/10/25 11:15 Temperature 98.0 F Pulse Rate [Right Pulse Oximeter] 93 75 Respiratory Rate 18 16 Blood Pressure [Ri ght Upper Arm] 101/70 106/66 Pulse Oximetry 95 96 Oxygen Delivery Me thod Room Air Room Air Course Course ED Course: Patient seen examined. Comprehensive metabolic panel CBC lactate normal saline bolus given Zofran given. Vital Signs Vital signs: Initial Vital Signs Temperature 98.0 F 05/10/25 09:32 Temperature Source Temporal Artery Scan 05/10/25 09:32 Pulse Rate 93 05/10/25 09:32 Pulse Rhythm Regular 05/10/25 09:32 Pulse Strength 3+ Normal 05/10/25 09:32 Respiratory Rate 18 05/10/25 09:32 Blood Pressure 101/70 05/10/25 09:32 Blood Pressure Mean 80 05/10/25 09:32 Blood Pressure Position Sitting 05/10/25 09:32 Pulse Oximetry 95 05/10/25 09:32 Oxygen Delivery Method Room Air 05/10/25 09:32 Vital Signs Temperature 98.0 F 05/10/25 09:32 Pulse Rate 93 05/10/25 09:32 Respiratory Rate 18 05/10/25 09:32 Blood Pressure 101/70 05/10/25 09:32 Pulse Oximetry 95 05/10/25 09:32 Oxygen Delivery Method Room Air 05/10/25 09:32 Temperature 98.0 F 05/10/25 09:32 Pulse Rate 75 05/10/25 11:15 Respiratory Rate 16 05/10/25 11:15 Blood Pressure 106/66 05/10/25 11:15 Pulse Oximetry 96 05/10/25 11:15 Oxygen Delivery Method Room Air 05/10/25 11:15 Medications Administered Medications: Generic Name Dose Route Start Last Admin Trade Name Freq PRN Reason Stop Dose Admin Sodium Chloride 1,000 mls @ 1,000 mls/hr 05/10/25 11:21 05/10/25 11:36 0.9 % Sodium Chloride 1000 Ml IV 05/10/25 12:20 1,000 mls/hr .Q1H OSIRIS Administration Discontinued Medications Generic Name Dose Route Start Last Admin Trade Name Freq PRN Reason Stop Dose Admin Sodium Chloride 1,000 mls @ 1,000 mls/hr 05/10/25 09:46 05/10/25 11:10 0.9 % Sodium Chloride 1000 Ml IV 05/10/25 10:45 Infused .Q1H OSIRIS Infusion Ondansetron HCl 4 mg 05/10/25 09:46 05/10/25 10:10 Ondansetron 2 Mg/Ml Inj IVP 05/10/25 09:47 4 mg ONCE ONE Administration Medical Decision Making MDM Narrative Medical decision making narrative: Patient is a 49-year-old gentleman who presents with nausea vomiting diarrhea. He sent over from the urgent care. Vital signs are stable his lab is reasonable. He has a normal exam. At this time I did treated with 2 L normal saline 4 mg of Zofran with improvement of his symptoms. Patient has gastroenteritis and will be discharged home with primary care follow-up. I did discharge him on Zofran to advance his diet activity as tolerated. Lab Data Labs: Lab Results 05/10/25 Range/Units 10:15 WBC 9.30 (4.50-11.00) K/uL RBC 5.76 (4.30-5.90) m/uL Hgb 16.4 (13.5-17.5) gm/dL Hct 49.0 (37.0-53.0) % MCV 85 (80-100) fL MCH 29 (26-34) pg MCHC 34 (32-36) gm/dL RDW Coeff of Laisha 11.7 (11.5-15.5) % Plt Count 275 (140-440) K/uL Neut % (Auto) 76.6 H (42.0-72.0) % Lymph % (Auto) 11.3 L (20-44) % [place] % (Auto) 10.0 (0.0-11.0) % Eos % (Auto) 1.9 (0.0-7.0) % Baso % (Auto) 0.1 (0.0-3.0) % Neut # (Auto) 7.10 H (1.7-7.0) K/uL Lymph # (Auto) 1.10 (0.90-2.90) K/uL [place] # (Auto) 0.90 (0.00-0.90) K/UL Eos # (Auto) 0.18 (0.00-0.50) K/uL Baso # (Auto) 0.01 (0.00-0.30) K/uL Abs Immat Gran (auto) 0.01 (0.00-0.30) K/uL Imm/Tot Granulo (auto) 0.1 % Sodium 137 (135-149) mmol/L Potassium 3.2 L (3.6-5.1) mmol/L Chloride 104 (96-114) mmol/L Carbon Dioxide 25 (20-32) mmol/L Anion Gap 8 (7-15) mEq/L BUN 15 (5-24) mg/dL Creatinine 1.0 (0.5-1.5) mg/dL Estimated Creat Clear 109.15 Estimated GFR 93 ml/min Glucose 106 (60-115) mg/dL Lactate 1.1 (0.5-1.9) mmol/L Calcium 8.2 L (8.4-10.6) mg/dL Total Bilirubin 0.7 (0.1-1.5) mg/dL AST 17 (12-35) U/L ALT 12 (4-50) U/L Alkaline Phosphatase 67 (40-150) U/L Total Protein 6.8 (6.0-8.3) g/dL Albumin 4.1 (3.3-5.0) g/dL Discharge Plan Discharge Clinical Impression: Gastroenteritis Patient Disposition: Home, Self-Care Condition: Stable Instructions: Gastroenteritis (ED) Additional Instructions: Advanced diet activity as tolerated. Zofran as needed Follow-up with your doctor as needed. Activity Level: No Restrictions Discharge Diet: Regular Prescriptions: No Action Ozempic 2 mg/dose (8 mg/3 mL) pen injector 2 mg subcut QWEEK Follow Up/Referrals: Jason Dorado MD [Primary Care Provider, Family Practice] Stand Alone Forms: MyHealth Info Instructions
[2025-05-10] MEDS: ONDANSETRON 2 MG/ML inj 4 MG IVP (10:10)
[2025-05-10 10:20] LABS: Lactate* 1.1 mmol/L (0.5-1.9)
[2025-05-10 10:25] LABS: Hematocrit* 49.0 % (37.0-53.0); Hemoglobin* 16.4 gm/dL (13.5-17.5); Immature Granulocytes Abs Auto 0.01 K/uL (0.00-0.30); Immature Granulocytes Pct Auto 0.1 %; Mean Corpuscular HGB Conc 34 gm/dL (32-36); Mean Corpuscular Hemoglobin 29 pg (26-34); Mean Corpuscular Volume 85 fL (80-100); RDW Coefficient of Variation % 11.7 % (11.5-15.5); Red Blood Count* 5.76 m/uL (4.30-5.90); White Blood Count* 9.30 K/uL (4.50-11.00)
[2025-05-10 10:26] LABS: Lymphocytes Absolute Auto 1.10 K/uL (0.90-2.90); Slide Review Reflex No
[2025-05-10 10:49] LABS: Albumin* 4.1 g/dL (3.3-5.0); Chloride* 104 mmol/L (96-114); Sodium* 137 mmol/L (135-149)
[2025-05-10 10:50] LABS: Potassium* 3.2 mmol/L (3.6-5.1)
[2025-05-10 10:52] LABS: Alanine Aminotransferase* 12 U/L (4-50); Alkaline Phosphatase* 67 U/L (40-150); Anion Gap 8 mEq/L (7-15); Aspartate Amino Transferase* 17 U/L (12-35); Bilirubin Total* 0.7 mg/dL (0.1-1.5); Blood Urea Nitrogen* 15 mg/dL (5-24); Carbon Dioxide* 25 mmol/L (20-32); Creatinine* 1.0 mg/dL (0.5-1.5); Est. Creatinine Clearance* 109.15; Estimated Glomerular Filt Rate 93 ml/min; Total Protein* 6.8 g/dL (6.0-8.3)
[2025-05-10 10:53] LABS: Calcium* 8.2 mg/dL (8.4-10.6); Glucose* 106 mg/dL (60-115)
[2025-05-10 11:15] VITALS: BP 106/66; PULSE 75; RESP 16; O2SAT 96
== END 2025-05-10 12:30 | disposition home or self-care (01) ==
PROVIDERS: Emergency Provider Internal Medicine; PCP Family Medicine
DX: K52.9 Noninfective gastroenteritis and colitis, unspecified (principal)
CPT/HCPCS: 36415; 80053; 83605; 85025; 96361; 96374; 99283; 99284; J2405; J7030

== ENCOUNTER 2025-05-11 21:19 | Observation (INO) | payer BC, SELFPAY ==
--- OUTSIDE RECORDS SUMMARY | 2025-05-11 21:22 | XMS_ITS | Clinical Summary ---
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 [address] [place] [id number] Pepper Mccrary PA [address] [place] [address] Health Maintenance Due Date Last Done Comments [...] this topic Medical Devices Implanted Type Area Teleradiologist Device Identifier Shelf Expiration Date Model / Serial / Lot Bone Matrix 1cc Humphreys Dbf Putty Dbm - [id number] Implanted:Qty: 1 on 07/24/2024 by Bean Sutton MD at [facility] N/A: Spine Medtronic Spine/Ortho [id number] 02/09/2026 [id number] / [id number] / [id number] Bone Matrix 1cc Janie Dbf Putty Dbm - [id number] Implanted:Qty: 1 on 07/24/2024 by Bean Sutton MD at [facility] N/A: Spine Medtronic Spine/Ortho [id number] 04/11/2026 [id number] / [id number] / [id number] Spacer Cage [id number] 4.6 Deg Peek - [id number] Implanted:Qty: 1 on 07/24/2024 by Bean Sutton MD at [facility] N/A: Spine Medtronic Spine/Ortho 09/22/2031 [id number] / / [id number] Plate Cerv 1lvl 23mm [place] Vision Elite Ant - [id number] Implanted:Qty: 1 on 07/24/2024 by Bean Sutton MD at [facility] N/A: Spine Medtronic Spine/Ortho [id number] / / Screw Cerv Ant 4x14mm [place] Translational Va Slf Tppng - [id number] Implanted:Qty: 2 on 07/24/2024 by Bean Sutton MD at [facility] N/A: Spine Medtronic Spine/Ortho [id number] / / Screw Cerv Ant 4x16mm [place] Translational Va Slf Tppng - [id number] Implanted:Qty: 2 on 07/24/2024 by Bean Sutton MD at [facility] N/A: Spine Medtronic Spine/Ortho [id number] / / Procedures Procedure Name Priority Date/Time [...] CHOLESTEROL 30(L) > OR = 40 mg/dL [facility] TRIGLYCERIDES 157(H) <150 mg/dL [facility] LDL-CHOLESTEROL 181(H) mg/dL (calc) [facility] Comment: Reference range: <100 Desirable range <100 mg/dL for primary prevention; <70 mg/dL for patients with CHD or diabetic patients with > or = 2 CHD risk factors. LDL-C is now calculated using the Braulio-Dobbins calculation, which is a validated novel method providing better accuracy than the Friedewald equation in the estimation of LDL-C. Braulio SS et al. GARY. 2013;310(19): 9453-7269 (http://education.Mobile Travel Technologies/faq/ZNT430) CHOL/HDLC RATIO 8.0(H) <5.0 (calc) [facility] NON HDL CHOLESTEROL 211(H) <130 mg/dL (calc) [facility] Comment: For patients with diabetes plus 1 major ASCVD risk factor, treating to a non-HDL-C goal of <100 mg/dL (LDL-C of <70 mg/dL) is considered a therapeutic option. Blood BLOOD SPECIMEN / Unknown 12/10/2024 7:49 AM CDT 12/10/2024 7:52 AM CDT Narrative [facility] - 12/11/2024 3:23 AM CDT FASTING:YES FASTING: YES us Jason Doraod MD CHEMISTRY Final Res ult [facility] [address] [place] [address], [facility] [address] [place] [address] * COLONOSCOPY SCREENING (09/24/2024 12:00 AM CDT) us Jason Dorado MD GI PROCEDURE ORD Final Re sult * ANTI HCV (01/26/2022 11:47 AM CDT) HEPATITIS C ANTIBODY Non-React brittany Non-React brittany 01/27/2022 4:03 AM CDT [facility] Comment:Antibodies to HCV no t detected; does not exclude the possibility of exposure to HCV. Blood BLOOD SPECIMEN / Unknown Venipuncture / Unknown 01/26/2022 11:47 AM CDT 01/26/2022 11:48 AM CDT us Lidia PENALOZA SEND OUTS Final [facility]u lt [facility] [address] [place] [address], [place] from Last 3 Months or Most Recently Relevant to Health Maintenance Insurance [facility] [place] [address] [place] [address] * Guarantor: PADMINI Elivar Account Type Relation to Patient Date of Phone Billing Address Workers Comp [address] [place] [address] OWCP Advance Directives * Full Code (Latest Code Status on File) Date Activated Date Inactivated Comments 07/24/2024 3:49 PM 07/24/2024 9:43 PM Question Answer Comments Code Status Discussion: Per Existing Order * Full Code Date Activated Date Inactivated Comments 07/24/2024 8:31 AM 07/24/2024 3:49 PM Question Answer Comments Code Status Discussion: Unable to Assess Preferences, Provider to review later Care Teams Development Educator Relationship Specialty Start Date End Date Jason Dorado MD [facility] [place] [address] PCP - General Family Practice 07/23/24 Pepper Mccrary PA [address] [place] [address] [place] [address] Physician Slice Plug Cutter Operator 12/05/24
[2025-05-11 21:23] VITALS: BMI 29.0
--- NOTE | 2025-05-11 21:51 | ED_ITS ---
HPI - General Adult General Chief complaint: Nausea/Vomiting Stated complaint: vomiting, diarrhea Time Seen by Provider: 05/11/25 21:49 History of Present Illness HPI narrative: pt with constant diarrhea and vomiting. was seen yesterday for this. was told if not better, to be seen again. no initial vitals , pt left to use restroom. 49-year-old man presenting to the emergency department with continued diarrhea. Symptoms did also began with vomiting about 5 days ago. Vomiting was pretty bad initially but then got better. Returned few days ago and now is left primarily with nausea such that he just can not conceive of putting anything in his mouth. Was seen in this department yesterday. Has been taking Imodium at least 4 doses however with no effect. Is having watery stools every 5 minutes or so. Has not had a fever. No blood noted. Some abdominal discomfort but not really per pain. No exposures to other illness. No recent antibiotics. Very dry mouth. No rashes. Does seem to be demonstrating some shortness of breath at times but that apparently he says is because he is trying to clench so that he does not lose control of his bowels. Has been taking semaglutide since October of this year. Using it to assist with weight loss. Last dosing was 5 days ago. 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 Related Data Home Medications ?Medication ?Instructions ?Recorded ?Confirmed semaglutide 2 mg/dose (8 mg/3 mL) 2 mg subcut QWEEK 05/10/25 subcutaneous pen injector (Ozempic) Allergies Allergy/AdvReac Type Severity Reaction Status Date / Time No Known Drug Allergies Allergy Verified 05/10/25 09:40 Review of Systems Status of ROS: Reports: 6 or more systems reviewed and unremarkable except as noted in History and below PFSH PFS Social History Smoking Status: Never smoker Second hand tobacco smoke exposure: No How often do you have a drink containing alcohol: never AUDIT-C Alcohol total score: 0 Non-prescribed substance use: denies use service: Yes Exam Narrative: Exam Narrative: Very pleasant. Does seem fatigued, quite tired. Mouth sounds sticky. Lungs are clear. Heart is in elevated rate and with regular rhythm. Abdomen is soft and uncomfortable across the low abdomen but not markedly tender. Peritoneal signs certainly. Extremities are without edema. Is well-perfused. Const: Vital Signs, click to edit/add: Vital Signs - 24 hr 05/11/25 22:40 Temperature 97.9 F Pulse Rate [Left P ulse Oximeter] 91 Respiratory Rate 20 Blood Pressure [Ri ght Upper Arm] 131/83 Pulse Oximetry 96 Oxygen Delivery Me thod Room Air Documenting provider has reviewed patient's vital signs: yes Course Vital Signs Vital signs: Initial Vital Signs Temperature 97.9 F 05/11/25 22:40 Temperature Source Temporal Artery Scan 05/11/25 22:40 Pulse Rate 91 05/11/25 22:40 Pulse Rhythm Regular 05/11/25 22:40 Respiratory Rate 20 05/11/25 22:40 Respiratory Effort Normal, Spontaneous, Non-Labored 05/11/25 22:40 Respiratory Depth Normal 05/11/25 22:40 Blood Pressure 131/83 05/11/25 22:40 Blood Pressure Mean 99 05/11/25 22:40 Blood Pressure Position Semi-Fowlers 05/11/25 22:40 Pulse Oximetry 96 05/11/25 22:40 Oxygen Delivery Method Room Air 05/11/25 22:40 Vital Signs Temperature 97.9 F 05/11/25 22:40 Pulse Rate 91 05/11/25 22:40 Respiratory Rate 20 05/11/25 22:40 Blood Pressure 131/83 05/11/25 22:40 Pulse Oximetry 96 05/11/25 22:40 Oxygen Delivery Method Room Air 05/11/25 22:40 Temperature 97.9 F 05/11/25 22:40 Pulse Rate 91 05/11/25 22:40 Respiratory Rate 20 05/11/25 22:40 Blood Pressure 131/83 05/11/25 22:40 Pulse Oximetry 96 05/11/25 22:40 Oxygen Delivery Method Room Air 05/11/25 22:40 Medications Administered Medications: Generic Name Dose Route Start Last Admin Trade Name Freq PRN Reason Stop Dose Admin Potassium Chloride 10 meq in 100 mls @ 100 mls/hr 05/11/25 23:15 05/11/25 23:24 Potassium Chloride IVPB 05/12/25 01:44 PRESS SERVICE READER 100 mls/hr Q90M OSIRIS Administration Discontinued Medications Generic Name Dose Route Start Last Admin Trade Name Angeline PRN Reason Stop Dose Admin Sodium Chloride 1,000 mls @ 1,000 mls/hr 05/11/25 21:59 05/11/25 23:02 0.9 % Sodium Chloride 1000 Ml IV 05/11/25 22:58 Infused .Q1H ONE Infusion Metoclopramide HCl 10 mg/ 102 mls @ 306 mls/hr 05/11/25 21:59 05/11/25 23:02 Sodium Chloride IVPB 05/11/25 22:00 Infused ONCE ONE Infusion Potassium Bicarbonate 25 meq 05/11/25 23:12 05/11/25 23:24 Potassium Bicarb 25 Meq Effervescent Tab PO 05/11/25 23:13 25 meq ONCE ONE Administration Medical Decision Making MDM Narrative Medical decision making narrative: Diarrhea being prominent symptom is clearly dehydrated. Will begin IV fluid replacement. Look for red flags in labs. Does not really appear to be of colitis. Does not pain to the degree that expected this case. Blood in stool either. No fever. This might be med reaction with the semaglutide. Check for degree of potential acidosis. Initiated normal saline. Also given Reglan the back which did appear on reassessment to help a good deal with his nausea. On reassessment a following initial L does appear to have full more energy. Mouth still sounds pretty dry. Labs returned with a potassium of 2.7. He was already little low 3.2 yesterday. I have ordered for replacement of potassium both IV and oral. Have discussed with hospitalist for likely admission as spouse pointed out that she is worried that they will be right back. Derrick has made numerous trips to the toilet/commode already during this visit. Stool culture pending. C diff negative. Accepted for admission. Medical Records Medical records reviewed: Yes I reviewed the patient's medical records Lab Data Lab results reviewed: Yes I reviewed the patient's lab results Labs: Lab Results 05/11/25 05/11/25 05/11/25 Range/Units 22:04 22:10 22:20 WBC 8.63 (4.50-11.00) K/uL RBC 6.05 H (4.30-5.90) m/uL Hgb 17.4 (13.5-17.5) gm/dL Hct 50.6 (37.0-53.0) % MCV 84 (80-100) fL MCH 29 (26-34) pg MCHC 34 (32-36) gm/dL RDW Coeff of Laisha 11.7 (11.5-15.5) % Plt Count 302 (140-440) K/uL Neut % (Auto) 72.9 H (42.0-72.0) % Lymph % (Auto) 14.3 L (20-44) % Burleigh % (Auto) 10.4 (0.0-11.0) % Eos % (Auto) 1.4 (0.0-7.0) % Baso % (Auto) 0.1 (0.0-3.0) % Neut # (Auto) 6.30 (1.7-7.0) K/uL Lymph # (Auto) 1.20 (0.90-2.90) K/uL Burleigh # (Auto) 0.90 (0.00-0.90) K/UL Eos # (Auto) 0.12 (0.00-0.50) K/uL Baso # (Auto) 0.01 (0.00-0.30) K/uL Abs Immat Gran (auto) 0.08 (0.00-0.30) K/uL Imm/Tot Granulo (auto) 0.9 % VBG pH 7.461 H (7.32-7.43) VBG pCO2 35 L (40-50) mmHG VBG pO2 45.2 (25-47) mmHG VBG HCO3 25 (21-28) mmol/L Sodium 138 (135-149) mmol/L Potassium 2.7 L* (3.6-5.1) mmol/L Chloride 103 (96-114) mmol/L Carbon Dioxide 23 (20-32) mmol/L Anion Gap 12 (7-15) mEq/L BUN 12 (5-24) mg/dL Creatinine 1.0 (0.5-1.5) mg/dL Estimated Creat Clear 109.15 Estimated GFR 93 ml/min Glucose 116 H (60-115) mg/dL Calcium 8.2 L (8.4-10.6) mg/dL Total Bilirubin 0.5 (0.1-1.5) mg/dL Direct Bilirubin 0.3 (0.0-0.5) mg/dL AST 12 (12-35) U/L ALT 9 (4-50) U/L Alkaline Phosphatase 72 (40-150) U/L Total Protein 6.8 (6.0-8.3) g/dL Albumin 4.0 (3.3-5.0) g/dL Stl C. diff Tox B Gene Negative (Negative) Stl C. diff 027-NAP1-BI PRESUMPTIVE NEGATIVE (Negative) SARS-CoV-2 (PCR) Negative SARS-CoV-2 (Negative) Influenza Type A (PCR) Negative PCR FLU A (Negative) Influenza Type B (PCR) Negative PCR FLU B (Negative) Discharge Plan Discharge Clinical Impression: Diarrhea, Dehydration, Medication reaction, Acute hypokalemia Patient Disposition: Admitted As Observation Condition: Improved Procedures ABG Interpretation ABG Results: 05/11/25 22:20 VBG pH 7.461 H VBG pCO2 35 L VBG pO2 45.2 VBG HCO3 25
[2025-05-11] MEDS: METOCLOPRAMIDE HCL 10 MG in 0.9 % SODIUM CHLORIDE 100 ml 100 ML 306 MG IVPB (22:18)
[2025-05-11 22:29] LABS: HCO3 VBG 25 mmol/L (21-28); PCO2 VBG 35 mmHG (40-50); PO2 VBG 45.2 mmHG (25-47); pH VBG 7.461 (7.32-7.43)
[2025-05-11 22:40] VITALS: BP 131/83; PULSE 91; RESP 20; TEMP 36.6; O2SAT 96
[2025-05-11 22:40] LABS: Hematocrit* 50.6 % (37.0-53.0); Hemoglobin* 17.4 gm/dL (13.5-17.5); Immature Granulocytes Abs Auto 0.08 K/uL (0.00-0.30); Immature Granulocytes Pct Auto 0.9 %; Mean Corpuscular HGB Conc 34 gm/dL (32-36); Mean Corpuscular Hemoglobin 29 pg (26-34); Mean Corpuscular Volume 84 fL (80-100); RDW Coefficient of Variation % 11.7 % (11.5-15.5); Red Blood Count* 6.05 m/uL (4.30-5.90); White Blood Count* 8.63 K/uL (4.50-11.00)
[2025-05-11 22:42] LABS: Lymphocytes Absolute Auto 1.20 K/uL (0.90-2.90); Slide Review Reflex No
[2025-05-11 22:44] LABS: Albumin* 4.0 g/dL (3.3-5.0); Chloride* 103 mmol/L (96-114)
[2025-05-11 22:45] LABS: Sodium* 138 mmol/L (135-149)
[2025-05-11 22:47] LABS: Alanine Aminotransferase* 9 U/L (4-50); Alkaline Phosphatase* 72 U/L (40-150); Anion Gap 12 mEq/L (7-15); Aspartate Amino Transferase* 12 U/L (12-35); Bilirubin Direct* 0.3 mg/dL (0.0-0.5); Bilirubin Total* 0.5 mg/dL (0.1-1.5); Blood Urea Nitrogen* 12 mg/dL (5-24); Carbon Dioxide* 23 mmol/L (20-32); Creatinine* 1.0 mg/dL (0.5-1.5); Est. Creatinine Clearance* 109.15; Estimated Glomerular Filt Rate 93 ml/min; Total Protein* 6.8 g/dL (6.0-8.3)
[2025-05-11 22:48] LABS: Calcium* 8.2 mg/dL (8.4-10.6); Glucose* 116 mg/dL (60-115)
[2025-05-11 22:49] LABS: Potassium* 2.7 mmol/L (3.6-5.1)
[2025-05-11 22:54] LABS: PCR FLU A Negative PCR FLU A (Negative); PCR FLU B Negative PCR FLU B (Negative); SARS PCR* Negative SARS-CoV-2 (Negative)
[2025-05-11 23:20] LABS: C.Difficile Negative (Negative); CDIFFEPI 027 PRESUMPTIVE NEGATIVE (Negative)
[2025-05-11] MEDS: POTASSIUM BICARB 25 MEQ EFFERVESCENT TAB PO (23:24)
[2025-05-11] MEDS: POTASSIUM CHLORIDE 10 MEQ/100 ML PIGGYBACK 100 MEQ IVPB (23:24)
[2025-05-12] VITALS (10 sets, daily range): BP systolic 104–119; BP diastolic 66–80; PULSE 72–101; RESP 16–20; TEMP 36.4–37.2; O2SAT 93–97; BMI 29.4
[2025-05-12] MEDS: 0.9 % SODIUM CHLORIDE 500 ML 500 ML IV
--- NOTE | 2025-05-12 01:08 | CRLHL7_ITS ---
For Patients: As a result of the Century Cures Act, medical imaging exams and procedure reports are released immediately into your electronic medical record. You may view this report before your referring provider. If you have questions, please contact your health care provider. INDICATION: Diarrhea. TECHNIQUE: CT abdomen and pelvis without contrast. COMPARISON: None. FINDINGS: Lower chest: Unremarkable. Liver: Normal in size and attenuation. Gallbladder and bile ducts: No stones or inflammation. No biliary ductal dilatation. Spleen: Normal in size. Adrenal glands: Normal in size. No nodules. Pancreas: No inflammation. Kidneys: Normal in size. No stones or hydronephrosis. GI tract: Fluid-filled small and large bowel loops. No evidence of obstruction. Normal appendix. Lymph nodes: No lymphadenopathy. Vasculature: Abdominal aorta is normal in caliber. Abdominal wall/Omentum/Peritoneum: Tiny fat containing umbilical hernia. No free air or significant free fluid. Pelvis: Unremarkable. Bones: Unremarkable for age. IMPRESSION: 1. Fluid-filled small and large bowel loops, which may be seen in the setting of enterocolitis. 2. No other acute abdominal or pelvic abnormality on this noncontrast examination. Please note that all CT scans at this facility use dose modulation, iterative reconstruction, and/or weight-based dosing when appropriate to reduce radiation dose to as low as reasonably achievable. Dictated by Jayesh Cortez MD @ 05/12/2025 2:06:18 AM (Electronically Signed)
--- NOTE | 2025-05-12 01:10 | W.PM.TELEH&P ---
Telehealth- H&P: HPI History of Present Illness Time Seen by Provider: 01:11 Date Seen: 05/12/25 Chief complaint: vomiting, diarrhea Narrative: Derrick Valdes is seen as an Interactive Telehealth visit. Derrick Valdes is a 49 year old male who has no known past medical history who presents to the emergency department with complaint of persistent vomiting and diarrhea. Symptoms began Tuesday, initially with nausea and vomiting. Vomit described as being nonbloody, containing undigested food/stomach content due to PO intolerance, and worsened with any type of oral intake. Diarrhea began later on that day, described as being watery, nonbloody, nonmalodorous, and initially brown in color and is now yellow with specs of yellow material. Vomiting and diarrhea have been associated with abdominal cramping. He has been having 50+ bouts of diarrhea per day, but has recently started to slow down some but still at a significant number. Volume of BMs have decreased as well, reports now only releasing small amounts of fluid with his BMs. Due to his symptoms, he's had decreased PO intake at home. He is currently on Ozempic, which he began October 2024. He has been on maximum dosage for the last 3 months and denies an GI complications or issues at this dose prior. Also due to increased BMs, he reports pain with wiping, concerned he's developed hemorrhoids; denies any blood with wiping or blood dripping in the bowl w/ BMs. He consumes filtered water from their well; denies drinking untreated/unfiltered well or [place] water. He further denies any recent fever, chills, night sweats, sick contacts, consumption of potentially or verified spoiled food, recent travel, exposure to large crowds, increase in stress, dizziness, lightheadedness, near-syncope or syncope, chest pain, palpitations, shortness of breath, cough or flu like symptoms. He denies any tobacco, alcohol, or illicit drug use, personal or family history of IBD, IBS, or GI or colon cancers. ED course: -Vital signs on presentation significant for: HR 91 -Initial laboratory evaluation significant for: K 2.7, Ca 8.2, Cdiff negative, respiratory viral panel negative -Therapies provided in the emergency department included: Metoclopramide 10 mg, 1 L NS bolus, IV Potassium 10 meq x 2, PO potasium 25 meq Tele-Hospitalist team contacted for further evaluation and management. Review of Systems Status of ROS: Reports: 10 or more systems reviewed and unremarkable except as noted in History and below [facility] Social History What is your current living situation?: I presently have a place to live Problems where you live: no known problems Problems where you live details: N/A In the past 12 months, utilities in danger of being shut off: no In past 12 months, lack of transportation kept you from medical appts, meetings, work, or getting things needed for daily living: no In the past 12 mos, have been you worried that your food would run out before you had money to buy more?: never true In the past 12 mos, the food you bought just didn't last and you didn't have money to buy more?: never true Smoking Status: Never smoker Second hand tobacco smoke exposure: No How often do you have a drink containing alcohol: never How often do you have six or more drinks on one occasion: Never AUDIT-C Alcohol total score: 0 Non-prescribed substance use: denies use How often does anyone, including family, friends and others, physically hurt you: never How often does anyone, including family, friends and others, insult or talk down to you: never How often does anyone, including family, friends and others, threaten you with harm: never How often does anyone, including family, friends and others, scream or curse at you: never service: Yes Meds Home Medications and Allergies Home Medications ?Medication ?Instructions ?Recorded ?Confirmed ?Type semaglutide 2 mg/dose (8 mg/3 mL) 2 mg subcut QWEEK 05/10/25 05/10/25 History subcutaneous pen injector (Ozempic) Allergies Allergy/AdvReac Type Severity Reaction Status Date / Time No Known Drug Allergies Allergy Verified 05/10/25 09:40 Exam Narrative Exam Narrative: Physical Exam GENERAL: ?vital signs reviewed, well developed and nourished, in no distress HEENT: pupils are equal round and reactive to light, extraocular movements are grossly within normal limits and oral mucosa is moist. NECK: Supple without lymphadenopathy or thyromegaly according to nursing staff examination observation HEART: Tachycardic, Regular rhythm without any rubs, murmurs, or gallops. LUNGS: Clear to auscultation bilaterally with good air movement throughout ABDOMEN: Observation from nurse assisted exam, abdomen appears soft, and nondistended with increased bowel sounds noted, mild tenderness all 4 quadarants. EXTREMITIES: Strength and sensation is observed to be grossly within normal limits in the upper and lower extremities.? No focal strength deficit is observed. SKIN:? Observed warm and dry with color normal Const Vital Signs, click to edit/add: Vital Signs - 24 hr 05/11/25 22:40 05/12/25 00:49 Temperature 97.9 F 99 F Pulse Rate [Left Pulse Oximeter] 91 Pulse Rate [Right Pulse Oximeter] 91 Respiratory Rate 20 20 Blood Pressure [Right Arm] 119/80 Blood Pressure [Right Upper Arm] 131/83 Pulse Oximetry 96 96 Oxygen Delivery Method Room Air Room Air Hospitalist - H&P: Result Labs Labs: Short CBC 05/11/25 Range/Units 22:20 WBC 8.63 (4.50-11.00) K/uL Hgb 17.4 (13.5-17.5) gm/dL Hct 50.6 (37.0-53.0) % Plt Count 302 (140-440) K/uL BMP 05/11/25 22:20 Sodium 138 Potassium 2.7 L* Chloride 103 Carbon Dioxide 23 BUN 12 Creatinine 1.0 Glucose 116 H Calcium 8.2 L Liver Function 05/11/25 Range/Units 22:20 Total Bilirubin 0.5 (0.1-1.5) mg/dL Direct Bilirubin 0.3 (0.0-0.5) mg/dL AST 12 (12-35) U/L ALT 9 (4-50) U/L Alkaline Phosphatase 72 (40-150) U/L Albumin 4.0 (3.3-5.0) g/dL Assessment and Plan Assessment and plan (1) Acute hypokalemia: Status: Acute (2) Gastroenteritis: Status: Acute Plan 49 year old male with past medicla history of obesity, currently on a GLP-1 agent who presents to the ED with complaint of persistent vomiting and diarrhea, found to be hypokalemic. # Hypokalemia # Hypocalcemia -suspect 2/2 GI loses -potassium 2.7, Ca 8.2 on presentation -potassium repletion given -check Mg level; replete as needed -check ionized Ca; replete as needed -monitor and replete as needed # Gastroenteritis # Intractable diarrhea -respiratory viral panel negative -Cdiff negative -stool cultures pending -hold ozempic -liquid diet; advance as tolerated -start maintenance IVF -due to severity of diarrhea, will start on azithromycin -check CT abd/pelv -check TSH level -check stool lactoferrin -prn antiemetics -prn analgesics DVT prophylaxis: lovenox qd Code status: Full Disposition: Pending clinical improvement and management above. Patient high risk as outlined above Total Time Spent Total Time Spent: 35 minutes Telehealth: Statement Statement Telehealth Visit: Today's History and Physical is provided via interactive telehealth by Ange Vickers MD.? Patient is located at [facility].? Provider is located at [facility].? Nursing staff assisted with the patient's exam. The visit being done today meets criteria for a telehealth visit and the patient or patient?s parent/guardian is aware the visit is a telehealth visit. Camera Start Time: 01:11 Camera End Time: 01:34
[2025-05-12 01:39] LABS: Ionized Calcium* 1.00 mmol/L (1.11-1.30)
[2025-05-12] MEDS: POTASSIUM CHLORIDE 10 MEQ/100 ML PIGGYBACK 100 MEQ IVPB ×5 (01:47→13:10)
[2025-05-12] MEDS: LACTATED RINGERS 1000 ML 1,000 ML 125 ML IV ×3 (01:48→17:45)
[2025-05-12] MEDS: AZITHROMYCIN 250 MG TABLET 500 MG PO (01:59)
[2025-05-12 03:08] LABS: TSH With Reflex to FT4* 0.277 uIU/mL (0.270-4.200)
[2025-05-12] MEDS: METOCLOPRAMIDE HCL 5 MG/ML INJ 10 MG IVP (03:37)
--- NOTE | 2025-05-12 04:14 | PC.NURSE ---
Shift note: Patient was received to the floor for admission at 0035. Patient came by wheelchair. IV potassium was infusing at 60ml/hr. He reported of diarrhea, generalized abdominal pain, N/V. Ambulated independently in room. Patient has had about 6x small loose stool since admission. IV lactated ringers was ordered to infuse at 125ml/hr. Medication given as ordered. At 0345, patient complained of nausea. Metoclopramide IV was given and was effective. Alert and oriented. Vitally stable. MD review through Jabari at 0110. Jabari was called at 0400 to clarify hypoglycemic protocol order for patient. Nurse assured to call back she has clarified this order with MD. Nurse has not called back as at the time of report writing. Stool sample taking and sent to lab as ordered.
[2025-05-12 07:41] LABS: Hematocrit* 49.2 % (37.0-53.0); Hemoglobin* 16.8 gm/dL (13.5-17.5); Immature Granulocytes Abs Auto 0.07 K/uL (0.00-0.30); Immature Granulocytes Pct Auto 0.7 %; Lymphocytes Absolute Auto 1.70 K/uL (0.90-2.90); Mean Corpuscular HGB Conc 34 gm/dL (32-36); Mean Corpuscular Hemoglobin 29 pg (26-34); Mean Corpuscular Volume 84 fL (80-100); RDW Coefficient of Variation % 12.2 % (11.5-15.5); Red Blood Count* 5.84 m/uL (4.30-5.90); White Blood Count* 9.96 K/uL (4.50-11.00)
[2025-05-12 07:42] LABS: Chloride* 105 mmol/L (96-114); Slide Review Reflex No; Sodium* 137 mmol/L (135-149)
[2025-05-12 07:45] LABS: Anion Gap 7 mEq/L (7-15); Blood Urea Nitrogen* 12 mg/dL (5-24); Calcium* 7.8 mg/dL (8.4-10.6); Carbon Dioxide* 25 mmol/L (20-32); Creatinine* 1.0 mg/dL (0.5-1.5); Est. Creatinine Clearance* 109.15; Estimated Glomerular Filt Rate 93 ml/min; Glucose* 108 mg/dL (60-115)
[2025-05-12 08:00] LABS: Potassium* 2.9 mmol/L (3.6-5.1)
[2025-05-12] MEDS: ONDANSETRON 2 MG/ML inj 4 MG IVP (08:17)
--- NOTE | 2025-05-12 10:08 | P.IMPN_ITS ---
Assessment and Plan Assessment and plan (1) Acute hypokalemia: Problem comment: - K+: 2.7 --> 2.9 - ordered for more bags of potassium 100 mEq + ordered p.o. potassium bicarb 50 mEq b.i.d. - frequent potassium monitoring Status: Acute (2) Gastroenteritis: Problem comment: Stool culture is still pending C diff negative Continue IV fluids Continue antiemetics Status: Acute Total Time Spent Total Time Spent: Today I spent 50 minutes seeing the patient, reviewing Expanse and EPIC notes/diagnostics, discussing the care plan with our care time that includes social work, PT/OT, pharmacy, RT, mcfp and documenting my impressions and plan in the medical record. Subjective Date Seen: 05/12/25 Interval history: No acute events overnight. Patient was seen and examined at bedside. Afebrile no abdominal rigidity. He is complaining of abdominal cramping 5/10. He still having frequent liquid bowel movements and nausea. He denies lightheadedness, dizziness, palpitations chest discomfort or shortness of breath. Exam Narrative: Exam Narrative: Physical exam GENERAL: Comfortable, no acute distress. HEAD AND NECK: Atraumatic, normocephalic CARDIOVASCULAR: RRR. Normal S1, S2. No murmurs. RESPIRATORY: Clear to auscultation B/L. Good air entry B/L. GASTROINTESTINAL: Soft, mildly tender to palpation, diffusely. No rigidity. NEUROLOGY: Alert, awake, oriented X 3. Normal speech. PSYCH: Normal mood, normal affect. Const: Vital Signs, click to edit/add: Vital Signs - 24 hr 05/11/25 22:40 05/12/25 00:49 05/12/25 01:31 CDT Temperature 97.9 F 99 F Pulse Rate Pulse Rate [Left P ulse Oximeter] 91 Pulse Rate [Right Pulse Oximeter] 91 Respiratory Rate 20 20 20 Blood Pressure [Ri ght Arm] 119/80 Blood Pressure [Ri ght Upper Arm] 131/83 Pulse Oximetry 96 96 96 Oxygen Delivery Me thod Room Air Room Air Room Air 05/12/25 01:58 SCHOOL BUS DRIVER/MECHANIC 05/12/25 02:02 05/12/25 07:00 Temperature 97.7 F Pulse Rate 101 H 84 Pulse Rate [Left P ulse Oximeter] Pulse Rate [Right Pulse Oximeter] 93 Respiratory Rate 20 Blood Pressure [Ri ght Arm] 104/74 Blood Pressure [[facility] Upper Arm] Pulse Oximetry 93 Oxygen Delivery Me thod Room Air Labs Labs: Laboratory Results - last 24 hr 05/11/25 05/11/25 05/11/25 22:04 22:10 22:20 WBC 8.63 RBC 6.05 H Hgb 17.4 Hct 50.6 MCV 84 MCH 29 MCHC 34 RDW Coeff of Laisha 11.7 Plt Count 302 Neut % (Auto) 72.9 H Lymph % (Auto) 14.3 L Richardson % (Auto) 10.4 Eos % (Auto) 1.4 Baso % (Auto) 0.1 Neut # (Auto) 6.30 Lymph # (Auto) 1.20 Richardson # (Auto) 0.90 Eos # (Auto) 0.12 Baso # (Auto) 0.01 Abs Immat Gran (auto) 0.08 Imm/Tot Granulo (auto) 0.9 VBG pH 7.461 H VBG pCO2 35 L VBG pO2 45.2 VBG HCO3 25 Sodium 138 Potassium 2.7 L* Chloride 103 Carbon Dioxide 23 Anion Gap 12 BUN 12 Creatinine 1.0 Estimated Creat Clear 109.15 Estimated GFR 93 Glucose 116 H Calcium 8.2 L Ionized Calcium Caty Magnesium Total Bilirubin 0.5 Direct Bilirubin 0.3 AST 12 ALT 9 Alkaline Phosphatase 72 Total Protein 6.8 Albumin 4.0 TSH Stl C. diff Tox B Gene Negative Stl C. diff [id number]-NAP1-[id number] PRESUMPTIVE NEGATIVE SARS-CoV-2 (PCR) Negative SARS-CoV-2 Influenza Type A (PCR) Negative PCR FLU A Influenza Type B (PCR) Negative PCR FLU B 05/12/25 05/12/25 01:34 SCHOOL BUS DRIVER/MECHANIC 07:25 WBC 9.96 RBC 5.84 Hgb 16.8 Hct 49.2 MCV 84 MCH 29 MCHC 34 RDW Coeff of Laisha 12.2 Plt Count 281 Neut % (Auto) 67.9 Lymph % (Auto) 17.1 L Richardson % (Auto) 11.3 H Eos % (Auto) 2.9 Baso % (Auto) 0.1 Neut # (Auto) 6.76 Lymph # (Auto) 1.70 Richardson # (Auto) 1.10 H Eos # (Auto) 0.29 Baso # (Auto) 0.01 Abs Immat Gran (auto) 0.07 Imm/Tot Granulo (auto) 0.7 VBG pH VBG pCO2 VBG pO2 VBG HCO3 Sodium 137 Potassium 2.9 L* Chloride 105 Carbon Dioxide 25 Anion Gap 7 BUN 12 Creatinine 1.0 Estimated Creat Clear 109.15 Estimated GFR 93 Glucose 108 Calcium 7.8 L Ionized Calcium Caty 1.00 L Magnesium 1.7 Total Bilirubin Direct Bilirubin AST ALT Alkaline Phosphatase Total Protein Albumin TSH 0.277 Stl C. diff Tox B Gene Stl C. diff [id number] SARS-CoV-2 (PCR) Influenza Type A (PCR) Influenza Type B (PCR)
[2025-05-12] MEDS: POTASSIUM BICARB 25 MEQ EFFERVESCENT TAB 50 MEQ PO ×2 (13:35→21:25)
--- NOTE | 2025-05-12 15:28 | PC.NURSE ---
End of Shift: Patient pleasant and cooperative, A&O. VSS, afebrile. SpO2 maintained above 90% on RA. Pt reports abdominal pain this shift but declined PRN medication. Pt reports loose BM's every 30-45 minutes. Independent in room. Full liquid diet.
[2025-05-12 17:38] LABS: Potassium* 3.3 mmol/L (3.6-5.1)
[2025-05-12] MEDS: POTASSIUM CHLORIDE 10 MEQ CAPSULE ER 40 MEQ PO (19:31)
--- NOTE | 2025-05-12 19:39 | PC.NURSE ---
Nursing Care Hours: [id number] Pt this shift calm and cooperative, alert and oriented. Pain tolerated without intervention. Denies nausea. Tolerating full liquid diet. Frequent BM's, pt reporting 4 per hour. Denies blood when wiping but does report tenderness. [employer] Instructor offered a squirt bottle to use to rinse and then can pat dry vs wiping. Also offered aloe foam rinse.
[2025-05-13 00:21] VITALS: PULSE 76
[2025-05-13 02:25] VITALS: BP 116/73; PULSE 87; RESP 18; TEMP 36.8; O2SAT 95
[2025-05-13] MEDS: LACTATED RINGERS 1000 ML 1,000 ML 125 ML IV ×2 (02:29→10:04)
[2025-05-13] MEDS: ACETAMINOPHEN 325 MG TABLET 650 MG PO (02:48)
[2025-05-13 06:35] LABS: Hematocrit* 45.0 % (37.0-53.0); Hemoglobin* 15.3 gm/dL (13.5-17.5); Mean Corpuscular HGB Conc 34 gm/dL (32-36); Mean Corpuscular Hemoglobin 29 pg (26-34); Mean Corpuscular Volume 85 fL (80-100); Red Blood Count* 5.28 m/uL (4.30-5.90); White Blood Count* 11.73 K/uL (4.50-11.00)
[2025-05-13 06:39] LABS: Slide Review Reflex No
[2025-05-13 06:42] LABS: Chloride* 105 mmol/L (96-114); Sodium* 137 mmol/L (135-149)
[2025-05-13 06:43] LABS: Potassium* 3.3 mmol/L (3.6-5.1)
[2025-05-13 06:45] LABS: Blood Urea Nitrogen* 11 mg/dL (5-24); Creatinine* 0.9 mg/dL (0.5-1.5); Est. Creatinine Clearance* 121.27; Estimated Glomerular Filt Rate 106 ml/min
[2025-05-13 06:46] LABS: Calcium* 8.5 mg/dL (8.4-10.6); Carbon Dioxide* 27 mmol/L (20-32); Glucose* 99 mg/dL (60-115)
[2025-05-13 06:50] LABS: Anion Gap 5 mEq/L (7-15)
--- NOTE | 2025-05-13 06:52 | PC.NURSE ---
Pt is alert and oriented x3. Afebrile. Pt reports 3/10 pain in abdomen and a headache, managed with PRN medications. Pt continues to have loose stools throughout night but pt reported he was able to get a few hours of sleep. Pt is up ad paula in room and tolerating a full liquid diet. ?
[2025-05-13 07:00] VITALS: BP 105/63; PULSE 69; PULSE 76; RESP 18; TEMP 36.5; O2SAT 95
[2025-05-13] MEDS: POTASSIUM CHLORIDE 10 MEQ CAPSULE ER 60 MEQ PO (09:31)
[2025-05-13 11:00] VITALS: BP 109/77; PULSE 84; RESP 18; TEMP 36.7; O2SAT 94
[2025-05-13 12:19] LABS: Potassium* 3.4 mmol/L (3.6-5.1)
[2025-05-13] MEDS: POTASSIUM BICARB 25 MEQ EFFERVESCENT TAB 50 MEQ PO (12:56)
--- NOTE | 2025-05-13 13:32 | W.PC.NUTR.NO ---
Nutrition Progress Note Progress Note Progress Note: RDN with MD consult for diarrhea > 3 days. Patient admitted for persistent vomiting and diarrhea. Starting on Tuesday, he had nausea and vomiting then worsened with any type of oral intake. He started experiencing diarrhea later that day. Diagnosed with gastroenteritis. He had hypokalemia on admit. Current diet order was full liquids, but transitioned to a soft diet for lunch today. Weight loss noted, however not significant loss. BMI 29.3 kg/m2. RDN visited with patient, , and daughter. Patient reports diagnosis is gastroenteritis vs. underlying condition such as IBS, IBD, etc. Stool culture is pending. Provided educational handouts of fiber-restricted nutrition therapy and soft diet information. Patient reports he is familiar with the diet. He asked about low-fiber, high potassium containing foods. Bananas and potatoes were suggested. Yogurt would also be appropriate if dairy products are tolerated at this time. Patient and family had no questions at this time. RDN will revisit with patient if diagnosis changes. Will continue to monitor.
--- NOTE | 2025-05-13 14:04 | P.DS_ITS ---
DS: Providers Provider Date Seen: 05/13/25 Date of admission: 05/12/25 00:33 Primary care physician: Jason Dorado MD Admitting Clinician: Ange Vickers MD Consults: 05/12/25 01:02 Consult to Nutrition [CONS] Routine Comment: Reason for consult:: Diarrhea > 3 days Attending Physician on discharge: Ange Vickers MD DS: Diagnosis Discharge Diagnosis (1) Acute hypokalemia: Status: Acute Problem details: - K+: 2.7 --> 2.9 -> 3.4 - ordered for more bags of potassium 100 mEq + ordered p.o. potassium bicarb 50 mEq b.i.d. - frequent potassium monitoring (2) Gastroenteritis: Status: Acute Problem details: Stool culture is still pending C diff negative Continue IV fluids Continue antiemetics DS: Summary Hospital Course Hospital Course: pt admitted for abdominal pain, severe diarrhea and n/v most likely 2/2 gastroenteritis. C diff negative. pt had hypokalemia needing iv k, as he has severe N/V. pt given IV fluids and improved. F/up w/ pcp. Status at Discharge Functional status at discharge: independent ambulation Overall status at discharge: patient is progressing back to baseline Time Spent with Patient Time attestation: Total time spent providing and/or coordinating discharge services: Exam Narrative: Exam Narrative: Physical exam GENERAL: Comfortable, no acute distress. HEAD AND NECK: Atraumatic, normocephalic CARDIOVASCULAR: RRR. Normal S1, S2. No murmurs. RESPIRATORY: Clear to auscultation B/L. Good air entry B/L. No wheezes or rhonchi. GASTROINTESTINAL: Not distended, not tender to palpation. NEUROLOGY: Alert, awake, oriented X 3. Normal speech. PSYCH: Normal mood, normal affect. Const: Vital Signs, click to edit/add: Vital Signs - 24 hr 05/12/25 15:00 05/12/25 15:00 05/12/25 15:00 Temperature 98.4 F Pulse Rate 87 Pulse Rate [Right Pulse Oximeter] 84 84 Respiratory Rate 18 18 Blood Pressure [Ri ght Arm] 118/72 Pulse Oximetry 97 Oxygen Delivery Me thod Room Air 05/12/25 19:30 05/12/25 23:20 05/13/25 00:21 Temperature 97.6 F 98.0 F Pulse Rate 76 Pulse Rate [Right Pulse Oximeter] 80 72 Respiratory Rate 16 16 Blood Pressure [Ri ght Arm] 110/66 105/73 Pulse Oximetry 95 95 Oxygen Delivery Me thod Room Air Room Air 05/13/25 02:25 05/13/25 07:00 05/13/25 07:00 Temperature 98.3 F 97.7 F Pulse Rate 69 Pulse Rate [Right Pulse Oximeter] 87 76 Respiratory Rate 18 18 Blood Pressure [Ri ght Arm] 116/73 105/63 Pulse Oximetry 95 95 Oxygen Delivery Me thod Room Air Room Air 05/13/25 07:00 05/13/25 11:00 Temperature 98.1 F Pulse Rate Pulse Rate [Right Pulse Oximeter] 76 84 Respiratory Rate 18 Blood Pressure [Ri ght Arm] 109/77 Pulse Oximetry 94 Oxygen Delivery Me thod Room Air DS: Data Data Completed and Pending Labs on day of discharge: Labs from last 24 hours 05/13/25 05/13/25 05/12/25 12:01 05:58 17:15 WBC 11.73 H RBC 5.28 Hgb 15.3 Hct 45.0 MCV 85 MCH 29 MCHC 34 Plt Count 277 Sodium 137 Potassium 3.4 L 3.3 L 3.3 L Chloride 105 Carbon Dioxide 27 Anion Gap 5 L BUN 11 Creatinine 0.9 Estimated Creat Clear 121.27 Estimated GFR 106 Glucose 99 Calcium 8.5 Magnesium 1.8 Discharge Plan Discharge Disposition: Home, Self-Care Date of Admission: 05/12/25 00:33 Attending Provider on Discharge: Xin Ya Primary Care Provider: Jason Dorado Condition: Improved Anticipated Discharge Date/Time: 05/13/25 16:00 Discharge Medications: New loperamide 2 mg Capsule 2 mg PO Q4H PRN7 Days Qty: 40 0RF potassium chloride 20 mEq tablet,ER particles/crystals 40 meq PO DAILY Qty: 14 0RF Held Ozempic 2 mg/dose (8 mg/3 mL) pen injector 2 mg subcut QWEEK Hold Instructions: Resume on 05/17/25. Follow-up with your primary care physician on resumption day. Discharge Orders: Discharge Order (Routine); Ordered 05/13/25 Ordered By: Xin Ya Patient Education: Loperamide (By mouth), Potassium Chloride (By mouth), Hypokalemia (DC), Gastroenteritis (DC) Additional Instructions: You need to follow-up with your primary care physician within 5 days You need to repeat potassium levels at lab in 48 hours. Please do not hesitate to visit Urgent Care Clinic if you develop fever or worsening of your symptoms. Activity Level: No Restrictions Discharge Diet: Low Fat/Low Cholesterol Follow Up Appointments: Jason Dorado MD [Primary Care Provider, Family Practice] - 05/23/25 1:50 pm Referral Note: [facility] for follow up, 05/23 at 1:50pm Forms: Work/School Release, [employer] Info Instructions
[2025-05-13] MEDS: LOPERAMIDE HCL 2 MG CAPSULE 4 MG PO (14:43)
--- NOTE | 2025-05-13 15:31 | PC.NURSE ---
Discharge Note 255 Patient was very pleasant and cooperative throughout shift. VSS. Patient reported no pain upon discharge. Afebrile. Moves independently. A&Ox4. Education provided on diet, signs and symptoms, when to seek help and condition. Patient was discharged at 1515 accompanied by spouse and daughter.
== END 2025-05-13 15:15 | disposition home or self-care (01) ==
LOC: ED 22:10 → MEDSURG 05-12 00:34
PROVIDERS: Student in an Organized Health Care Education/Training Program; Admitting Provider Internal Medicine; Emergency Provider Family Medicine; PCP Family Medicine; Visit Provider Internal Medicine
DX: K52.9 Noninfective gastroenteritis and colitis, unspecified (principal); E87.6 Hypokalemia; E86.0 Dehydration
CPT/HCPCS: 36415; 74176; 80048; 80076; 82330; 82803; 83630; 83735; 83789; 84132; 84443; 85025; 85027; 87045; 87046; 87427; 87493; 87636; 96365; 96366; 96375; 99284; 99285; A9270; G0378; J2405; J2765; J3480; J7030; J7120